=== PATIENT | male | born 1945 | race Caucasian/White ===

== ENCOUNTER → 2017-05-16 | Outpatient (CLI) | payer OTHER ==
[~2017-05-16] VITALS: Ht 172.7 cm; Wt 72.5 kg
[2017-05-16 14:20] VITALS: BP 127/67; PULSE 66; Ht 172.7 cm; Wt 72.5 kg
== END | disposition home or self-care (01) ==
LOC: C.NEUR 13:45
PROVIDERS: ATTEND Internal Medicine Pulmonary Disease
DX: G47.33 Obstructive sleep apnea (adult) (pediatric) (principal)

== ENCOUNTER → 2017-05-29 | Outpatient (CLI) | payer OTHER ==
--- NOTE | 2017-05-30 07:30 | PAP/PSG TECHNICIAN REPORT ---
[facility] Investigator [employer] Polysomnogram Report Study name: None Report date: 05/30/2017 Study date: 05/29/2017 Referring Physician: Giuseppe Carbajal MD Name: JULISA HUNT Interpreting Physician: Cristo Berger D.O. Date of : 1945 Investigator Internal Revenue: Dafne Espino, PSGT. Sex: Male Age: 71 StudyType: PSG Weight: 159 lbs Height: 71 years, Height 5' 8" Neck Circum:16.5 inches BMI: 24.17 Medications: Carvedilol 12.5 mg, Lorsartan Potassium 25 mg, Atrovastatin Calcium 10 mg, Aspirin 81 mg, Omeprzole 20 mg, Isis-Vit. Patient History 71 year old male here for a split night study, AHI > 15. ESS= 10 mg, Neck = 16.5 inches. Patient stated that he didn't understand why he would have to wear a c-pap tonight for a few hours, when I was explaining the procedure of a split night study to him.... Parameters Monitored NPSG: E1-M2, E2-M1, Fp1-M2, Fp2-M1, F3-M2, F4-M2, F4-M1, C3-M2, C4-M2, C4-M1, O1-M2, O2-M2, O2-M1, T3-M2, T4-M1, P3-M2, P4-M1, CHIN1, CHIN2, HR, EKG, Legs, PFLOW, SNOR, FLOW, CFLOW, Tidal Volume, THOR, ABDO, SpO2, PLTH, CPRESS, ETCO2 Wave, ETCO2, pH Sleep Architecture Sleep Stages Time at Lights Off 11:05:40 PM STAGES Time (min.) TST (%) Time at Lights On 5:22:40 AM Wake 69.5 -- Total Recording Time (TRT) 378.50 min. N1 13.0 4 Total Sleep Period (TSP) 331.0 min. N2 229.5 75 Total Sleep Time (TST) 307.5min. N3 0.0 0 Awake Time 71.0 min. REM 65.0 21 Wake after Sleep Onset 32.5 min. Sleep Efficiency (SE) 82 % Sleep Onset Latency (NIKOS) 37.0 min. Number of Stage 1 Shifts None Awakenings 13 Stage Changes 39 Number of REM periods 3 REM 65.0 21 REM Latency 47.0 min. NREM 242.5 79 Body Position Analysis Supine Right Left Side Prone Vertical Total Sleep Time (min.) 344.9 0.0 27.6 27.64 0.0 1.5 Total Sleep Time (%) 91% 0% 9% 9 0% N/A% Total Sleep Time REM (min.) 42.5 0.0 22.5 None 0.0 0.0 Total Sleep Time NREM (min.) 237.4 0.0 5.1 None 0.0 0.0 Intermittent Wake (min.) 65.0 0.0 3.0 None 0.0 1.5 Total Sleep Period (%) 91% None None None None None Arousals Myoclonus (PLM) * Events Count Index Events Count Index Spontaneous 63 12 Events Awake (PLMW) 2 1.7 Respiratory 10 2.0 Events Asleep w/ Arousal (PLMA) 7 1.4 PLM 7 1 Events Asleep w/o Arousal (PLMS) 96 18.7 Snoring 23 4 Total Asleep 103 20.1 Total 103 20 Total 105 17 Respiratory Analysis * CA OA MA CH H RERA Total Count 6 7 0 0 69 0 82 Index 1.2 1.4 0.0 0 13.5 0 16.0 Mean Duration 17.1 19.5 0.0 0.00 21.5 0.0 21.0 Longest Duration 28.6 24.9 0.0 0.00 0.0 0.0 51.9 Respiratory Event Summary Total Supine ~Supine Right Left Prone REM NREM Apneas Count 13 13 0 N/A 0 N/A 0 13 Index 2.5 3 0 N/A 0.0 N/A 0 3 Hypopneas (4% Desat) Count 69 67 2 N/A 2 N/A 8 61 Index 13.5 14.4 4 N/A 4.3 N/A 7.4 15.1 Apneas & All Hypopneas Count 82 80 2 N/A 2 N/A 8 74 Index 16.0 17 4 N/A 4 N/A 7.4 18.3 Respiratory Events (Silo Filler+All Hyp+RERA) Count 82 80 2 N/A 2 N/A 8 74 Index 16.0 17 4 N/A 4.3 N/A 7.4 18.3 Respiratory Related Arousal Count 10 80 2 N/A 2 N/A 1 9 Index 2.0 2 4 N/A 4 N/A 1 2 Snoring Analysis Supine Right Left Prone REM NREM Total Snore duration 10.4 min Snores count 216 N/A 73 N/A 80 209 289 Snore mean duration 2.2 Sec Snores index 46 N/A 158 N/A 73.8 51.7 56.4 TST with snoring (%) 3.4% Desaturation Event Summary: Minimum %SpO2 Event Count Mean/Min/Max Duration(sec.) Desaturation Index % Time In Bed > 90 125 32.6 / 10.5 / 60.0 23.3 88.8 86 - 90 0 N/A 0.0 8.2 81 - 85 0 N/A 0.0 2.9 76 - 80 0 N/A 0.0 0.0 71 - 75 0 N/A 0.0 0.0 66 - 70 0 N/A 0.0 0.0 61 - 65 0 N/A 0.0 0.0 56 - 60 0 N/A 0.0 0.0 51 - 55 0 N/A 0.0 0.0 < 50 0 N/A 0.0 0.0 Total REM NREM Awake <50% 0.0 min. 0.0 min. 0.0 min. 0.0 min. 51 - 60% 0.0 min. 0.0 min. 0.0 min. 0.0 min. 61 - 70% 0.0 min. 0.0 min. 0.0 min. 0.0 min. 71 - 80% 0.0 min. 0.0 min. 0.0 min. 0.0 min. 81 - 90% 40.4 min. 0.1 min. 35.3 min. 4.9 min. 91 - 100% 321.6 min. 64.7 min. 202.2 min. 54.6 min. Average 94 95 93 94 Minimum SpO2 79 90 84 79 Desaturation Event Index 19.9 19.4 25.7 0.0 # Desat. Events below 89% 10 N/A 10 0 Time(%) with Saturation below 89% 7.9 0.0 6.7 1.2 Time(min.) with Saturation below 89% 28.6 0.0 24.3 4.4 Time (mins) REM (mins) NREM (mins) % of TST SpO2 Below 90% 35 1 N34 9.9 SpO2 Below 88% 6 0 0 7 Heart Rate Analysis Min (bpm) Max (bpm) Average (bpm) Awake 31 300 57 NREM 51 127 55 REM 49 64 54 Overall 49 127 55 Supplemental O2 Values Minimum O2 level: None Value Start Time End Time Investigator Internal Revenue Comments PSG Study slept in the left, and supine positions. No cardiac arrhythmia or PLM's noted. No bruxism noted. Snoring was noted and scored as a two on a scale of 1 through 5. (0=no snoring, 5=snoring loud enough to be heard through a closed door or down the patino way) Mr. Hunt awoke to use the restroom zero times during the night. stated, I slept better than I do when I am in my own bed. The final report will be interpreted and signed by a sleep physician. The completed physician report will then be placed in the patient medical record. Patient did not reach an AHI of 15 before 2 am, therefore he did not qualify for a split night study. Therapy (cm H2O) 0 TIB (min.) 377.0 TST (min.) 307.5 Sleep Onset (min.) 37.0 REM Onset From Sleep (min.) 47.0 Sleep Efficiency % 82 Wakefulness (%) 18 Wakefulness (min.) 71.0 NREM 1 (%) 4 NREM 1 (min.) 13.0 NREM 2 (%) 75 NREM 2 (min.) 229.5 NREM 3 (%) 0 NREM 3 (min.) 0.0 REM (%) 21 REM (min.) 65.0 # Arousals 103 Arousal Index 20 # Snore 289 Snore Index 56.4 AHI 16.0 AHI Supine 17 AHI Non-Supine 4 NREM AHI 18.3 REM AHI 7.4 RDI 16.0 # Obstructive Apnea 7 # Central Apnea 6 # Mixed Apnea 0 # Hypopneas 69 RERAs 0 Total Respiratory Events 84 Time Below SpO2 89% (min.) 24.3 Mean NREM SpO2 (%) 93 Mean REM SpO2 (%) 95 Mean Sleep SpO2 (%) 93 Min NREM SpO2 (%) 84 Min REM SpO2 (%) 90 Position Supine (min.) 344.9 Position Non-supine (min.) 27.6 LM Index Sleep 20.1 LM Index NREM 20.0 LM Index REM 20.3 Mean Heart Rate (bpm) 55 Min Heart Rate (bpm) 49
--- NOTE | 2017-06-01 13:10 | Sleep Study ---
Sleep Study Report Date of Service: 05/29/2017 Sleep Study Report CLINICAL DATA: The patient is a 71-year-old male who has a history of snoring and observed apneas. He has known cardiomyopathy and cardiac arrhythmia. He has a history of hypertension and diabetes. His [place] Sleepiness Scale score was 10. This was an in-lab overnight polysomnography. SLEEP ARCHITECTURE: The sleep period time was 331 minutes. The total sleep time was 307.5 minutes. The sleep efficiency was mildly reduced at 82 percent. The sleep latency was prolonged to 37 minutes. Wake after sleep onset was 32.5 minutes. The REM latency was mildly short at 47 minutes. Sleep consisted of stage N1 4 percent, stage N2 75 percent, stage N3 0 percent, stage REM 21 percent. AROUSAL DATA: The patient had a total of 103 arousals including 63 spontaneous arousals, 10 respiratory arousals, 7 PLM arousals, and 23 snoring arousals. The arousal index was 20. PLM DATA: The patient had a total of 103 periodic limb movements of sleep for a PLM index of 20.1. There were 7 arousals associated with limb movements for a PLM arousal index of 1.4. EKG: The underlying cardiac rhythm was normal sinus. The minimum heart rate was 49 beats per minute. The average heart rate was 55 beats per minute. No cardiac arrhythmia was noted. RESPIRATORY DATA: The patient had a total of 82 respiratory events including 6 central apneas, 7 obstructive apneas, and 69 hypopneas. Hypopneas were scored according to the 4 percent desaturation rule. The longest apnea was 28.6 seconds. The mean duration of the hypopneas was 21.5 seconds. The apnea-hypopnea index was moderately elevated at 16.0 events per hour. This is compatible with moderate obstructive sleep apnea. OXIMETRY DATA: The average saturation for the night was 94 percent. The minimum saturation was 79 percent. This was likely artifactual. There was a total of 28.6 minutes with saturations less than 89 percent. [employer] FI[employer] TECHNICIAN COMMENTS: The patient slept on the left and supine positions. No cardiac arrhythmia noted. No bruxism noted. Snoring was noted and scored as a 2 on a scale of 1 through 5. The patient awaken to use the restroom 0 times during the night. He states that he slept better than he does in his own bed. The patient did not qualify for a split night study as he did not have sufficient events before 2 a.m.. IMPRESSIONS: 1. Moderate obstructive sleep apnea COMMENTS: The patient had a mild decrease in sleep efficiency. Sleep architecture was abnormal with no stage N3 sleep. Most of the night he was supine. There was a modest number of arousals. He had moderate sleep apnea as noted above. In light of his numerous comorbidities, it is advised that he be treated. RECOMMENDATIONS: 1. It is advised that the patient be given a trial of nasal CPAP. 2. It would be suggested that the patient avoid sleeping in the supine position. 3. Further suggestions will be made following the trial of nasal CPAP. Copies To 1: Cristo Berger DO; Giuseppe Carbajal M.D.
== END | disposition home or self-care (01) ==
LOC: C.NEUR 21:00
PROVIDERS: ATTEND Internal Medicine Pulmonary Disease
DX: G47.33 Obstructive sleep apnea (adult) (pediatric) (principal)

== ENCOUNTER 2023-06-27 14:31 | Observation (INO) ==
--- NOTE | 2023-06-27 15:09 | ED Triage Note ---
Date of Service June 27, 2023 Provider in Triage Author: Logan Mccullough History of Present Illness This patient was briefly evaluated while in triage. An abbreviated physical exam was performed. This patient is a 77-year-old Male who presents to the ED for evaluation of left chest pain with shortness of breath. The patient reports that he just had cardiac catheterization with 3 stents a month ago. Patient is currently on Plavix and aspirin. The patient reports that his current chest pain is different than what he had prior to his catheterization. The patient was seen by his electric furnace operator, who was concerned that he had a blood clot in the chest. Patient reports that he also had abnormal labs, and was sent to the emergency department for further imaging. Patient reports pain only with deep breathing, rating his discomfort an 8 out of 10. Physical Exam CONSTITUTIONAL: Healthy and well nourished. HEENT: No scleral icterus or conjunctival injection. RESPIRATORY: Clear to auscultation bilaterally with no wheezing, crackles, rhonchi or stridor. CARDIOVASCULAR: Regular rate and rhythm with no murmurs, rubs or gallops. MUSCULOSKELETAL: No tenderness to palpation over the left anterior chest wall. INTEGUMENTARY: No rash or other significant dermatologic conditions noted. HEMATOLOGIC: No ecchymosis or petechiae. PSYCHIATRIC: Positive affect. NEUROLOGIC: No focal neurologic deficits noted. Initial orders for labs and / or imaging were placed and patient was placed in the waiting area until a bed is available. Please see further documentation for the full ED course.
[2023-06-27 16:02] LABS: Basophils # (auto) 0.04 K/uL (0.00-0.20); Basophils % (auto) 0.7 %; Eosinophils # (auto) 0.34 K/uL (0.00-0.50); Eosinophils % (auto) 6.1 %; Immature Granulocytes # (auto) 0.02 K/uL (0.01-0.20); Immature Granulocytes % (auto) 0.4 %; Lymphocytes % (auto) 14.4 %; Mean Corpuscular Hemoglobin 31.3 pg (25.0-34.0); Mean Corpuscular Hgb Conc 33.3 g/dL (32.0-36.0); Monocytes % (auto) 10.8 %; Neutrophils # (auto) 3.74 K/uL (1.40-6.50); Neutrophils % (auto) 67.6 %; Platelet Count 114 K/uL (130-400); RDW Standard Deviation 55.3 fL (36.4-46.3); Red Blood Count 3.19 M/uL (4.70-6.10); White Blood Count 5.54 K/ul (4.8-10.8)
[2023-06-27 16:16] LABS: INR 1.1 (0.9-1.1); Partial Thromboplastin Time 29 Seconds (21-31); Prothrombin Time 11.8 Seconds (9.0-12.0)
[2023-06-27 16:21] LABS: Albumin Level 3.6 gm/dl (3.4-5.0); Anion Gap 8 (3-11); Bilirubin,Total 0.7 mg/dl (0.2-1.0); Calcium 9.6 mg/dl (8.6-10.3); Carbon Dioxide 33 mmol/L (21-32); Chloride 95 mmol/L (98-107); Potassium 4.2 mmol/L (3.5-5.1); Sodium 136 mmol/L (136-145)
--- NOTE | 2023-06-27 16:27 | Emergency Department Note ---
Impression & Plan Pleuritic chest pain, ESRD needing dialysis, Elevated troponin, Elevated d- dimer ED Provider Note CHIEF COMPLAINT: Possible blood clot HISTORY OF PRESENTING ILLNESS: This 77-year-old male patient presents to the emergency department for evaluation of a possible blood clot. The patient has had pain in the left side of his chest since 8 pm last night that is worse when he takes a deep breath. The patient had recent cardiac stents (beginning of May at [facility]) and is on aspirin and Plavix. The pain is under his left rib cage and is worse with taking a deep breath. Denies any fevers, cough, or URI symptoms recently. Has felt extremely tired recently. No pain or swelling to his legs or calves. No pain or swelling of his arms. He denies any abdominal pain, nausea, or vomiting. He gets dialysis MWF and is due for dialysis tomorrow. 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 The patient saw his PCP today for the pleuritic chest pain. The patient was sent for outpatient labs including a D-dimer and troponin. The plan was if the D-dimer was elevated, for the patient to take Eliquis in addition to his Plavix and have a CTA of the chest prior to his dialysis tomorrow. However, if the troponin was elevated, he would be referred to the ER. Outpatient labs showed an elevated D-dimer at 2530 and elevated troponin at 48.2 so he was referred to the ER. REVIEW OF SYSTEMS: See HPI for pertinent positives and pertinent negatives. ALLERGIES: NKDA MEDICATIONS: See below PAST MEDICAL HISTORY: See below PHYSICAL EXAM: VITALS: Vitals are noted on the nurse's note and reviewed by myself. GENERAL: Chronically ill in appearance. Non toxic, no acute distress, non- diaphoretic. SKIN: Multiple areas of ecchymosis and dialysis fistulas present on exam. Capillary refill <2 sec. EYES: PERRLA. EOMI. Conjunctivae without injection, sclerae without icterus. NOSE: Patent without discharge. MOUTH: Mucous membranes moist. Uvula midline. Airway patent. NECK: Supple without nuchal rigidity. HEART: Regular rate and rhythm without murmurs gallops or rubs. LUNGS: Clear to auscultation bilaterally without wheezes, rales or rhonchi. No retractions or accessory muscle use. ABDOMEN: Positive bowel sounds x 4. Normal tympanic percussion. Soft, nontender. No masses or organomegaly. Urias sign negative. No guarding or rebound tenderness. No focal RLQ or LLQ tenderness. NEURO: Patient was alert and oriented. No focal neurological deficits. DIFFERENTIAL DIAGNOSIS: Differential diagnosis includes angina, MO, pericarditis, myocarditis, aortic dissection, pleurisy, pneumothorax, PE, pneumonia, pneumomediastinum, esophagitis, esophageal spasm, GERD, perforated esophagus, perforated duodenal/gastric ulcer, pancreatitis, cholecystitis, costochondritis, musculoskeletal, bronchitis, URI, or others. ED COURSE AND MEDICAL DECISION MAKING: HISTORY FROM INDEPENDENT HISTORIAN: Additional history obtained from the patient's . MONITOR: Continuous groundwater monitoring technician: Order was placed for continuous groundwater monitoring technician. Patient was placed on the groundwater monitoring technician and continuous pulse ox. Patient was noted to be in normal sinus rhythm at an initial rate of 70 bpm per my interpretation. EKG: EKG was interpreted by myself as sinus rhythm with fusion complexes at 71 bpm and left axis deviation with lateral T wave inversions. Initial repeat EKG appeared to be abnormal due to lead placement. Therefore, another repeat EKG was obtained and showed sinus rhythm with fusion complexes at 71 beats per minute with left axis deviation and lateral T wave inversions with no significant changes from his previous EKG. MEDICATIONS GIVEN: 500 mL normal saline solution bolus INTERPRETATION OF LABS: I interpreted the labs with full lab results as below in the lab section of this note. White blood cell count normal. Hemoglobin low, but stable at 10. Platelet count low at 114. Coags were normal. Creatinine elevated at 5.83 and BUN elevated at 34. Glucose 138. CMP otherwise without significant abnormalities. Magnesium was normal. High-sensitivity troponin was 44.6 with repeat at 39. Lipase normal at 6. INTERPRETATION OF IMAGING: Imaging studies were interpreted by myself and read by radiology as per the imaging section of this note. CTA of the chest showed no evidence for PE. 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 No acute dissection within the chest. No significant change from previous CT scan of May 2022. There is a trace left pleural effusion. Mild cardiomegaly with extensive coronary calcification. EXTERNAL RECORDS REVIEWED: Outpatient PCP note from today as well as outpatient labs were reviewed and summarized above. CONSULTATIONS: Dr. Huerta of cardiology. On-call hospitalist. MDM SUMMARY: The patient was seen during a time of extreme volume and extreme acuity. Nursing triage protocols were initiated with IV lock, labs, and/or imaging studies conducted by protocol in the triage area. The patient was examined by myself once they were taken back to an exam room. The patient was seen by his PCP today with pleuritic chest pain since 8 PM last evening. The patient has a history of recent cardiac stents as well as ESRD on dialysis. The patient had outpatient laboratory studies that showed an elevated D-dimer and elevated troponin. The patient was referred to the ER to rule out blood clot. The patient's repeat high-sensitivity troponin was slightly lower at 44.6 with repeat decreased down to 39. EKG without acute abnormalities. Dr. Huerta confirmed that the lateral T wave inversions are unchanged from his EKGs at [facility]. Due to the patient's elevated BUN and creatinine and dialysis status, I had a meaningful discussion about this patient with Dr. Fischer who agrees with my assessment and the treatment plan. We will proceed with CTA of the chest to evaluate for PE. CT of the chest showed no evidence for PE and no other acute abnormalities. The chronic dissection and aneurysmal dilation of the thoracic aorta is unchanged from previous imaging. Due to the patient's pleuritic chest pain, cardiac history, ESRD, and elevated D-dimer and troponin, we feel the patient requires admission for further evaluation. I spoke with the on-call hospitalist who asked that I speak with cardiology to confirm that the patient was able to be admitted locally. I spoke with Dr. Ngo of cardiology who was able to review the patient's most recent records from [facility] including his cardiac cath and stent placement. Dr. Ngo reviewed the patient's workup from today and feels the patient is stable to be admitted locally and does recommend that he be admitted with serial troponins for rule out. I spoke with the on-call hospitalist again who agreed to admit the patient for further evaluation and treatment. Please refer to their dictation for further details. The patient's care was transferred in stable condition. DIAGNOSIS: Pleuritic chest pain Elevated D-dimer Elevated troponin ESRD on dialysis Past Med/Surg History Medical History (Updated 06/28/23 @ 04:12 by Elida Armenta PA-C) Pleuritic chest pain Itch Paroxysmal atrial fibrillation Ischemic cardiomyopathy NSTEMI (non-ST elevated myocardial infarction) Lower abdominal pain COVID-19 virus infection Viral URI Vitamin B 12 deficiency Coronary artery disease Epigastric pain determined by examination Diverticulitis History of Mohs micrographic surgery for skin cancer x3--2 on scalp, 1 on back AV fistula x2--one one each arm; RIGHT ARM is FUNCTIONING PVCs (premature ventricular contractions) [place] [facility] [place] Chronic GERD Epigastric abdominal pain Cervical neck pain with evidence of disc disease Nontraumatic complete tear of right rotator cuff Osteoarthritis of right shoulder Dyslipidemia Chronic low back pain Cervicalgia IgA nephropathy Squamous cell carcinoma of scalp hx of; MOHS procedure Aortic dissection roughly 5yrs ago--per pt happened [place] [facility]--per pt no repair needed---follows with Dr. 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 while taking large doses of a steroid--pt states it resolved after awhile ESRD needing dialysis dialysis on Sat-Sat-Sat @ [facility] in [place] Elevated PSA Hyperlipemia, mixed Benign essential hypertension Hypomagnesemia Obstructive sleep apnea of adult Osteoarthritis of knees, bilateral Pulmonary embolism per pt happened during surgery [place] [facility] [place] "within the last 10yrs, I dont remember how long ago" Surgical History History of repair of left rotator cuff History of repair of right rotator cuff S/P arteriovenous (AV) fistula creation x2--per pt one on each arm, right arm is FUNCTIONING fistula History of colonoscopy History of tooth extraction History of bilateral cataract extraction History of cardiac cath roughly 5yrs ago [place] [facility] [place]caused an aortic dissection--no stents 05/27/2023 Coronary angiography w/left heart cath (Right) CORONARY ANGIOGRAPHY W/LEFT HEART CATH performed by Janet Larios MD at [facility] Kidney replaced by transplant per pt 2012 [place] [facility] [place] History of hernia repair umbilical hernia repair History of tonsillectomy Family History Other No family history of adverse response to anesthesia No pertinent family history Denies family history of Ovarian cancer Prostate cancer Myocardial infarction Breast cancer Colorectal cancer Social History Smoking Status: Unknown if ever smoked Second Hand Exposure: No; Do You Dip or Chew Tobacco: No; Hx Alcohol Use: No Hx Substance Use: No Preferred Language: Occitan Communication Ability: Effective Visual Impairment: No Limitations Hearing Ability: Normal 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 Required: No Beliefs That Will Affect Care: None marital status: Current Living Situation: Family current occupational status: retired Feels Safe at Home: Yes Safety Concerns: Feels Safe At This Time Childhood Exposure to Second-Hand Smoke: No caffeine: Yes (coffee ) Dental Care, Regularly: Yes Physical Activity Frequency: Does not Exercise Seatbelt Use: sometimes Sunscreen Use: Yes Assistive Devices: CPAP and Glasses Allergies Allergies Allergy/AdvReac Type Severity Reaction Status Date / Time No Known Allergies Allergy Verified 06/27/23 09:06 Home Meds Home Medications Medication Instructions Recorded Confirmed cinacalcet 30 mg tablet 30 mg PO QPM 06/04/22 06/27/23 aspirin 81 mg tablet,delayed 81 mg PO QAM 06/22/22 06/27/23 release (Adult Low Dose Aspirin) heparin (porcine) 1,000 unit/mL 2,000 unit IV .COMPLEX 05/14/23 06/27/23 injection solution vitamin B complex-vitamin C-folic 1 tab PO QPM 05/14/23 06/27/23 acid 0.8 mg tablet (Isis-Jomar) sevelamer HCl 800 mg tablet 800 mg PO UD 06/27/23 06/27/23 Previous Rx's Medication Instructions Recorded nitroglycerin 0.4 mg sublingual 0.4 mg sublingual Q5M PRN chest 07/11/21 tablet pain #25 tabs calcium acetate 667 mg tablet 667 mg PO BID #60 tabs 05/04/22 atorvastatin 80 mg tablet 80 mg PO QPM #90 tabs 06/12/23 pantoprazole 40 mg tablet,delayed 40 mg PO BID #180 tabs 06/12/23 release triamcinolone acetonide 0.1 % 1 applic topical BID PRN 06/12/23 topical cream widespread itch #454 grams carvedilol 12.5 mg tablet 12.5 mg PO BID #180 tabs 06/27/23 clopidogrel 75 mg tablet 75 mg PO DAILY #90 tabs 06/27/23 losartan 25 mg tablet 12.5 mg (1/2 x 25 mg) PO DAILY #45 06/27/23 tabs Results & Data (ED) Vital Signs Vital Signs - 24 hr 06/27/23 15:04 06/27/23 18:45 06/27/23 19:05 Temperature 36.9 C Temperature Source Temporal Artery Scan Pulse Rate 101 H 78 Pulse Rate [Apical] 74 Respiratory Rate 19 18 Respiratory Effort / Characteristics Non-Labored Spontaneous Non-Labored Spontaneous Respiratory Depth Normal Normal Blood Pressure 144/64 H Blood Pressure [Right Calf] 148/87 H Blood Pressure Mean 90 Blood Pressure Mean [Right Calf] 107 Blood Pressure Position [Right Calf] Lying Pulse Oximetry 97 98 Oxygen Delivery Method Room Air Room Air Sepsis Recent Fever Within 48 Hours No Sepsis New/Unexplained Change in Mental Status N/A Sepsis Action Taken by Nursing No Action Required 06/27/23 19:43 Temperature Temperature Source Pulse Rate Pulse Rate [Apical] 108 H Respiratory Rate 19 Respiratory Effort / Characteristics Respiratory Depth Blood Pressure Blood Pressure [Right Calf] 134/95 Blood Pressure Mean Blood Pressure Mean [Right Calf] 108 Blood Pressure Position [Right Calf] Pulse Oximetry 95 Oxygen Delivery Method Room Air Sepsis Recent Fever Within 48 Hours Sepsis New/Unexplained Change in Mental Status Sepsis Action Taken by Nursing Laboratory Data 06/27/23 15:34 06/27/23 15:34 Lab Results 06/27/23 06/27/23 Range/Units 15:34 17:20 WBC 5.54 (4.8-10.8) K/ul RBC 3.19 L (4.70-6.10) M/uL Hgb 10.0 L (14.0-18.0) g/dl Hct 30.0 L (42.0-52.0) % MCV 94.0 (80.0-100.0) fL MCH 31.3 (25.0-34.0) pg MCHC 33.3 (32.0-36.0) g/dL RDW Std Deviation 55.3 H (36.4-46.3) fL RDW Coeff of Carmen 16.0 H (11.5-14.5) % Plt Count 114 L (130-400) K/uL MPV 10.0 (9.4-12.4) fL Immature Gran % (Auto) 0.4 % Neut % (Auto) 67.6 % Lymph % (Auto) 14.4 % Bracken % (Auto) 10.8 % Eos % (Auto) 6.1 % Baso % (Auto) 0.7 % Neut # (Auto) 3.74 (1.40-6.50) K/uL Lymph # (Auto) 0.80 L (1.20-3.40) K/uL Bracken # (Auto) 0.60 H (0.11-0.59) K/uL Eos # (Auto) 0.34 (0.00-0.50) K/uL Baso # (Auto) 0.04 (0.00-0.20) K/uL Immature Gran # (Auto) 0.02 (0.01-0.20) K/uL PT 11.8 (9.0-12.0) Seconds INR 1.1 (0.9-1.1) APTT 29 (21-31) Seconds PTT Ratio 1.0 Sodium 136 (136-145) mmol/L Potassium 4.2 (3.5-5.1) mmol/L Chloride 95 L (98-107) mmol/L Carbon Dioxide 33 H (21-32) mmol/L Anion Gap 8 (3-11) BUN 34 H (6-23) mg/dl Creatinine 5.83 H* (0.6-1.4) mg/dl Est Cr Clr Drug Dosing Not Reportable Est GFR ( Amer) 9.8 ml/min Est GFR (Non-Af Amer) 8.5 ml/min BUN/Creatinine Ratio 5.8 L (10-20) Glucose 138 H (70-99(Fasting)) mg/dl Calcium 9.6 (8.6-10.3) mg/dl Magnesium 2.1 (1.7-2.4) mg/dl Total Bilirubin 0.7 (0.2-1.0) mg/dl AST 12 L (13-39) U/L ALT 10 (7-52) U/L Alkaline Phosphatase 107 H (34-104) U/L Troponin I High Sens 44.6 H 39.0 H (0-20) pg/ml Total Protein 6.4 (6.0-8.3) gm/dl Albumin 3.6 (3.4-5.0) gm/dl Globulin 2.8 (2.5-4.0) gm/dl Albumin/Globulin Ratio 1.3 (0.9-2) Lipase 6 L (11-82) U/L Administered Medications Atorvastatin Calcium (Atorvastatin 40 Mg Tab) 80 mg PO QPM CARLOS Stop: 07/27/23 22:18 Last Admin: 06/27/23 23:28 Dose: 80 mg Documented By: ASW Carvedilol (Carvedilol 12.5 Mg Tab) 12.5 mg PO BID CARLOS Stop: 07/27/23 22:18 Last Admin: 06/27/23 23:28 Dose: 12.5 mg Documented By: ASW Pantoprazole Sodium (Pantoprazole 40 Mg Tab) 40 mg PO BID CARLOS Stop: 07/27/23 22:18 Last Admin: 06/27/23 23:24 Dose: Not Given Documented By: BENEDICTO Discontinued Medications Acetaminophen (Acetaminophen 500 Mg Tab) 1,000 mg PO NOW STA Stop: 06/27/23 20:42 Last Admin: 06/27/23 21:09 Dose: 1,000 mg Documented By: BENEDICTO Famotidine (Famotidine 20 Mg Tab) 20 mg PO NOW ONE Stop: 06/27/23 20:42 Last Admin: 06/27/23 21:09 Dose: 20 mg Documented By: BENEDICTO Sodium Chloride (Nss) 500 mls @ 999 mls/hr IV .Q31M ONE Stop: 06/27/23 17:34 Last Infusion: 06/27/23 19:10 Dose: Infused Documented By: Admin: 06/27/23 17:15 Dose: 999 mls/hr Documented By: SURESH Ioversol (Optiray 320 125ml) 119 ml IV ONCE ONE Stop: 06/27/23 17:59 Last Admin: 06/27/23 17:58 Dose: 119 ml Documented By: NATHALIE Pantoprazole Sodium (Pantoprazole 40 Mg Tab) 40 mg PO NOW STA Stop: 06/27/23 20:42 Last Admin: 06/27/23 21:09 Dose: 40 mg Documented By: BENEDICTO Simethicone (Simethicone 80 Mg Chew) 80 mg PO NOW ONE Stop: 06/27/23 20:44 Last Admin: 06/27/23 21:08 Dose: 80 mg Documented By: ASW Imaging Data Radiologist's Impression: Chest CTA 06/27/23 17:04 CT ANGIOGRAPHY OF THE CHEST, PULMONARY EMBOLUS PROTOCOL CLINICAL HISTORY: Left-sided chest pain. History dissection repair. COMPARISON STUDY: Chest radiograph June 04, 2022. TECHNIQUE: Following IV administration of 119 mL of Optiray, helical axial images of the chest were obtained utilizing the pulmonary embolus protocol. Maximal intensity projections and sagittal and coronal reformats were viewed on an independent 3D workstation. IV contrast was administered without complication. Automated exposure control was utilized for the study. A dose lowering technique was utilized adhering to the principles of ALARA. CT DOSE: 653.28 mGy.cm FINDINGS: No pulmonary emboli are identified. There is moderate cardiomegaly and extensive coronary artery calcification. There is extensive atherosclerotic plaque within the thoracic aorta. Focal outpouchings of the descending thoracic aorta suggests chronic dissection with displaced intimal calcifications. Associated aneurysmal dilatation of the descending thoracic aorta measuring up to 3.7 cm is noted. There is no evidence for rupture. Outpouching of the distal descending thoracic aorta is unchanged since abdominal CT of June 04, 2022. No acute thoracic aortic dissection is identified. There is trace left pleural effusion. No consolidation is identified to suggest pneumonia. There is no pneumothorax. Contrast within collaterals within the chest is incidentally noted. A few hypodense hepatic lesions favor cysts. Innumerable hypodense splenic lesions are similar to abdominal CT of June 04, 2022. IMPRESSION: 1. No pulmonary emboli identified. 2. 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 No acute dissection within the chest. 3. Trace left pleural effusion. 4. Mild cardiomegaly. Extensive coronary calcification. ACT 112: Negative or not required by law. Electronically signed by: Rich Charles M.D. 06/27/2023 6:23 PM Discharge Plan Visit Data Chief Complaint: Referred by Doctor Stated Complaint: POSSIBLE BLOOD CLOT ED Provider: Geeta Fischer ED Midlevel Provider: Elida Armenta Discharge Problem: Pleuritic chest pain, ESRD needing dialysis, Elevated troponin, Elevated d- dimer Patient Disposition: Admitted As Inpatient Condition: Good Discharge Instructions Interventions: ED Discharge Assessment Last Done: 06/27/23 22:19
[2023-06-27 16:33] LABS: Alanine Aminotransferase 10 U/L (7-52); Albumin Globulin Ratio 1.3 (0.9-2); Alkaline Phosphatase 107 U/L (34-104); Aspartate Aminotransferase 12 U/L (13-39); BUN Creatinine Ratio 5.8 (10-20); Blood Urea Nitrogen 34 mg/dl (6-23); Est GFR (African American) 9.8 ml/min; Est GFR (Non-African American) 8.5 ml/min; Globulin 2.8 gm/dl (2.5-4.0); Glucose 138 mg/dl (70-99(Fasting)); Lipase 6 U/L (11-82); Total Protein 6.4 gm/dl (6.0-8.3); Troponin I High Sensitivity 44.6 pg/ml (0-20)
[2023-06-27] MEDS: SODIUM CHLORIDE 0.9% 500 ML IV ONE (17:15)
[2023-06-27 17:35] LABS: Magnesium 2.1 mg/dl (1.7-2.4)
[2023-06-27] MEDS: OPTIRAY 320 125ml IV ONE (17:58)
--- NOTE | 2023-06-27 18:26 | CT Scan Report ---
CT ANGIOGRAPHY OF THE CHEST, PULMONARY EMBOLUS PROTOCOL CLINICAL HISTORY: Left-sided chest pain. History dissection repair. COMPARISON STUDY: Chest radiograph June 04, 2022. TECHNIQUE: Following IV administration of 119 mL of Optiray, helical axial images of the chest were o btained utilizing the pulmonary embolus protocol. Maximal intensity projections and sagittal and cor onal reformats were viewed on an independent 3D workstation. IV contrast was administered without co mplication. Automated exposure control was utilized for the study. A dose lowering technique was ut ilized adhering to the principles of ALARA. CT DOSE: 653.28 mGy.cm FINDINGS: No pulmonary emboli are identified. There is moderate cardiomegaly and extensive coronary artery calcification. There is extensive atherosclerotic plaque within the thoracic aorta. Focal outp ouchings of the descending thoracic aorta suggests chronic dissection with displaced intimal calcific ations. Associated aneurysmal dilatation of the descending thoracic aorta measuring up to 3.7 cm is n oted. There is no evidence for rupture. Outpouching of the distal descending thoracic aorta is unchan ged since abdominal CT of June 04, 2022. No acute thoracic aortic dissection is identified. There is trace left pleural effusion. No consolidation is identified to suggest pneumonia. There is no pneumo thorax. Contrast within collaterals within the chest is incidentally noted. A few hypodense hepatic l esions favor cysts. Innumerable hypodense splenic lesions are similar to abdominal CT of June 04. IMPRESSION: 1. No pulmonary emboli identified. 2. 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 No acute dissection within the ches t. 3. Trace left pleural effusion. 4. Mild cardiomegaly. Extensive coronary calcification. ACT 112: Negative or not required by law. Electronically signed by: Rich Charles M.D. 06/27/2023 6:23 PM
--- NOTE | 2023-06-27 20:19 | History & Physical Report ---
Date of Service June 27, 2023 Assessment & Plan (1) Abdominal pain: Plan: -Admit to med/tele -Currently stable and non-toxic appearing -Presented to the ED from his PCP's office due to concerns of possible left sided pleuritic chest pain -Underwent CTA of the chest which was negative for PE and showed a stable thoracic aneurysm -Initial high sen trop elevated at 44 --> 39 on 2 hour repeat -[facility]iology was consulted and confirmed not acute ECG changes compared to recent admission at [facility] -On exam, the patient's discomfort is clearly in his epigastric region and LUQ -Suspect his discomfort is due to his known hiatial hernia and GERD >Patient is also supposed to be on BID PO pantoprazole but was taking daily due to prescription confusion -Will give a dose of PO pantoprazole, famotidine, and simethicone now -Continue BID pantoprazole and famotidine -Will start prn simethicone, patient has OTC simethicone at home he can use -Cardiology consult placed -BL Vipin's for DVT PPX -HH/renal dialysis diet >1500 mL fluid and 2gm sodium restrictions -AM CBC, CMP, mag, phos, PT/INR (2) Elevated troponin: Plan: -Initial high sen trop elevated at 44 ---39 on 2 hour repeat -No acute ECG changes per cardiology -Patient's pain is in the epigastric and LUQ regions -Likely a combination of mild demand from his severely reduced EF and falsely elevated due to his ESRD status -Continue to monitor on tele -Will continue to trend q6h overnight to monitor for substantial changes -Continue aspirin and plavix (3) ESRD needing dialysis: Plan: -Typical dialysis schedule is MW -Did have a full dialysis session yesterday -Electrolytes are stable today, no emergent need for dialysis tonight -Patient will need to have dialysis tomorrow due to CT contrast received in the ED -Nephrology consult placed, spoke with Nephrology, appreciate their assistance >Will receive HD tomorrow -Continue home renal medications -Monitor am renal function and electrolytes (4) Thrombocytopenia: Plan: -Platelets of 114 today -No signs of bleeding -Likely due to recent Cardiac cath at [facility] and dual antiplatelet therapy -Have to continue Aspirin and plavix at this time with his recent KASHMIR placement -Monitor for signs of bleeding -Monitor daily CBC (5) Paroxysmal atrial fibrillation: Plan: -Reportedly developed new onset, paroxysmal afib during his admission at [facility] last month -Per the discharge summary, anticoagulation was not started due to the patient's bleeding risk -Has been in sinus rhythm today -Continue Carvedilol (6) Ischemic cardiomyopathy: Plan: -Currently euvolemic -LVEF of < 20% on echo obtained at [facility] during last admission -Did receive 500 mL NSS in the ED prior to admission -Would be extremely cautious with any IV fluids overnight with his severely reduced EF and ESRD status >Patient does NOT make urine -Not on diuretic therapy due to labile blood pressure (7) Coronary artery disease: Plan: -Continue aspirin and plavix (8) GERD (gastroesophageal reflux disease): Plan: -Resume BID pantoprazole -Start BID famotidine and prn simethicone -Was not continued on Carafate after last admission at [facility] due to concerns of aluminum build-up with his ESRD status (9) Benign essential hypertension: Plan: -Currently stable -Will continue carvedilol -Holding am losartan tomorrow as he will be having a dialysis session Plan The patient was discussed with Dr. Mcguire at the time of the admission History of Present Illness Chief Complaint: Left sided chest pain Primary Care Provider: Giuseppe Carbajal MD Noel Ruiz is a 77 year old male with a PMH significant for CAD S/P recent NSTEMI and PCI with KASHMIR placement to the RCA, distal LMCA/ostial LAD, at [facility] on 05/27/23, HFrEF (LVEF of <20%), thoracic aortic aneurysm, atrial fibrillation (not on anticoagulation due to bleeding risk), ESRD on HD MWF, GERD, complex sleep apnea syndrome, dyslipidemia who presented to the [facility] ED on 06/27/23 due to acute onset of left sided chest pain with inspiration. He was noted be mildly hypotensive at 106/58, tachycardic at 108, but otherwise stable. Labs were significant for a thrombocytopenia of 114, d- dimer of 2530, Cr. of 5.83, bicarb of 33, initial high sen trop 44 ---> 39 on 2 hour repeat. CTA of the chest with PE protocol was read as "1. No pulmonary emboli identified. 2. 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 No acute dissection within the chest. 3. Trace left pleural effusion. 4. Mild cardiomegaly. Extensive coronary calcification.". The ED staff spoke with [facility]iology who reviewed his ECG's from today and they stated there were no acute concerning changes compared to his post heart cath ECG's. They also reviewed the patient's CTA of the chest today and believed the thoracic aortic aneurysm to be stable. They recommended admission for ongoing monitoring on tele. Prior to admission the patient was given 500 mL NSS. At the time of the exam the patient was lying in bed in no acute distress with his bedside, history was obtained from both. They confirm his recent hospitalization at [facility] last month, see discharge summary scanned into [employer] for details. Last night he started to develop dull/achy epigastric/LUQ abdominal pain when he took deep breaths. He mentioned this to his PCP earlier today for discharge follow-up and they sent him to the ED due to concern for possible PE, his hx of aortic aneurysm, and recent cardiac catheterization. He does have a known hiatal hernia and long history of reflux. He was supposed to start taking Pantoprazole 40 mg PO BID after discharge, he states that the prescription bottle said to take once daily so he's only been taking it once a day. Denies recent fever, chills, SOB, cough, hemoptysis, vomiting, diarrhea, melena, LE swelling, and recent trauma. He does not make urine and had a full dialysis session yesterday evening. They confirm that he is a DNR/DNI, his is his POA if he cannot make decisions himself. Please refer to Dr. Mcguire's attestation for any changes to the treatment plan Allergies Allergy/AdvReac Type Severity Reaction Status Date / Time No Known Allergies Allergy Verified 06/27/23 09:06 Home Medications Medication Instructions Recorded Confirmed Type nitroglycerin 0.4 mg sublingual 0.4 mg sublingual Q5M PRN chest 07/11/21 06/27/23 Rx tablet pain #25 tabs calcium acetate 667 mg tablet 667 mg PO BID #60 tabs 05/04/22 06/27/23 Rx cinacalcet 30 mg tablet 30 mg PO QPM 06/04/22 06/27/23 History aspirin 81 mg tablet,delayed 81 mg PO QAM 06/22/22 06/27/23 History release (Adult Low Dose Aspirin) heparin (porcine) 1,000 unit/mL 2,000 unit IV .COMPLEX 05/14/23 06/27/23 History injection solution vitamin B complex-vitamin C-folic 1 tab PO QPM 05/14/23 06/27/23 History acid 0.8 mg tablet (Isis-Jomar) atorvastatin 80 mg tablet 80 mg PO QPM #90 tabs 06/12/23 06/27/23 Rx pantoprazole 40 mg tablet,delayed 40 mg PO BID #180 tabs 06/12/23 06/27/23 Rx release triamcinolone acetonide 0.1 % 1 applic topical BID PRN 06/12/23 06/27/23 Rx topical cream widespread itch #454 grams carvedilol 12.5 mg tablet 12.5 mg PO BID #180 tabs 06/27/23 06/27/23 Rx clopidogrel 75 mg tablet 75 mg PO DAILY #90 tabs 06/27/23 06/27/23 Rx losartan 25 mg tablet 12.5 mg (1/2 x 25 mg) PO DAILY #45 06/27/23 06/27/23 Rx tabs sevelamer HCl 800 mg tablet 800 mg PO UD 06/27/23 06/27/23 History amoxicillin 500 mg-potassium 1 tab PO DAILY diverticulitis #7 06/28/23 Rx clavulanate 125 mg tablet tabs famotidine 20 mg tablet 20 mg PO DAILY PRN stomach pain / 06/28/23 Rx heartburn #1 tab Past Med/Surg History Medical History Pleuritic chest pain Itch Paroxysmal atrial fibrillation Ischemic cardiomyopathy NSTEMI (non-ST elevated myocardial infarction) Lower abdominal pain COVID-19 virus infection Viral URI Vitamin B 12 deficiency Coronary artery disease Epigastric pain determined by examination Diverticulitis History of Mohs micrographic surgery for skin cancer x3--2 on scalp, 1 on back AV fistula x2--one one each arm; RIGHT ARM is FUNCTIONING PVCs (premature ventricular contractions) follows with [facility] Cardiology Chronic GERD Epigastric abdominal pain Cervical neck pain with evidence of disc disease Nontraumatic complete tear of right rotator cuff Osteoarthritis of right shoulder Dyslipidemia Chronic low back pain Cervicalgia IgA nephropathy Squamous cell carcinoma of scalp hx of; MOHS procedure Aortic dissection roughly 5yrs ago--per pt happened at [facility] during heart cath--per pt no repair needed---follows with Dr. 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 while taking large doses of a steroid--pt states it resolved after awhile ESRD needing dialysis dialysis on Sat-Sat-Sat @ [facility] in [place] Elevated PSA Hyperlipemia, mixed Benign essential hypertension Hypomagnesemia Obstructive sleep apnea of adult Osteoarthritis of knees, bilateral Pulmonary embolism per pt happened during surgery @ [facility] "within the last 10yrs, I dont remember how long ago" Surgical History History of repair of left rotator cuff History of repair of right rotator cuff S/P arteriovenous (AV) fistula creation x2--per pt one on each arm, right arm is FUNCTIONING fistula History of colonoscopy History of tooth extraction History of bilateral cataract extraction History of cardiac cath roughly 5yrs ago @ [facility]--caused an aortic dissection--no stents 05/27/2023 Coronary angiography w/left heart cath (Right) CORONARY ANGIOGRAPHY W/LEFT HEART CATH performed by Janet Larios MD at [facility] Kidney replaced by transplant per pt 2012 @ [facility] History of hernia repair umbilical hernia repair History of tonsillectomy Family History Other No family history of adverse response to anesthesia No pertinent family history Denies family history of Ovarian cancer Prostate cancer Myocardial infarction Breast cancer Colorectal cancer Social History Smoking Status: Unknown if ever smoked Second Hand Exposure: No; Do You Dip or Chew Tobacco: No; Hx Alcohol Use: No Hx Substance Use: No Preferred Language: Danish Communication Ability: Effective Visual Impairment: No Limitations Hearing Ability: Normal Secretary Office Clerk Required: No Beliefs That Will Affect Care: None marital status: Current Living Situation: Family current occupational status: retired Feels Safe at Home: Yes Childhood Exposure to Second-Hand Smoke: No caffeine: Yes (coffee ) Dental Care, Regularly: Yes Physical Activity Frequency: Does not Exercise Seatbelt Use: sometimes Sunscreen Use: Yes Assistive Devices: CPAP and Glasses Physical Exam Physical Exam: Physical Exam: General: In no acute distress, stated age, well-nourished, good hygiene HEENT: Normocephalic, atraumatic, no scleral icterus, pupils around round, symmetrical, and reactive to light, moist mucus membranes, trachea midline, no thyromegaly Chest/Pulm: No respiratory distress, symmetrical chest expansion, clear breath sounds throughout Cardiac: RRR, no murmurs noted Abdomen: Negative for ascites and bruising, normoactive bowel sounds, soft, mildly tender to palpation in the epigastric/LUQ regions without rebound tenderness Musculoskeletal: Symmetrical and without signs of acute trauma, upper and lower extremities with full ROM, no atrophy, spasticity, or flaccidity Extremities: Radial, dorsalis pedis, and posterior tibial pulses are intact and symmetrical, no edema noted in the BL LE's Skin: Warm, dry, no rashes , lesions, or scars noted Neuro: Alert and oriented to person, place, month, year, and president, no focal defects, no tremors noted Psych: No acute distress, calm and cooperative during the exam Results & Data Results & Data Vital Signs (Past 12 Hours) Vital Signs Temp Pulse Pulse Resp BP BP Pulse Ox 06/27/23 19:43 108 H 19 134/95 95 06/27/23 19:05 78 06/27/23 18:45 74 18 148/87 H 98 06/27/23 15:04 36.9 C 101 H 19 144/64 H 97 O2 Del Method 06/27/23 19:43 Room Air 06/27/23 19:05 06/27/23 18:45 Room Air 06/27/23 15:04 Room Air Laboratory Results Abnormal lab results 06/27/23 06/27/23 Range/Units 15:34 17:20 RBC 3.19 L (4.70-6.10) M/uL Hgb 10.0 L (14.0-18.0) g/dl Hct 30.0 L (42.0-52.0) % RDW Std Deviation 55.3 H (36.4-46.3) fL RDW Coeff of Carmen 16.0 H (11.5-14.5) % Plt Count 114 L (130-400) K/uL Lymph # (Auto) 0.80 L (1.20-3.40) K/uL Wallace # (Auto) 0.60 H (0.11-0.59) K/uL Chloride 95 L (98-107) mmol/L Carbon Dioxide 33 H (21-32) mmol/L BUN 34 H (6-23) mg/dl Creatinine 5.83 H* (0.6-1.4) mg/dl BUN/Creatinine Ratio 5.8 L (10-20) Glucose 138 H (70-99(Fasting)) mg/dl AST 12 L (13-39) U/L Alkaline Phosphatase 107 H (34-104) U/L Troponin I High Sens 44.6 H 39.0 H (0-20) pg/ml Lipase 6 L (11-82) U/L Diagnostic Findings Chest CTA 06/27/23 17:04 CT ANGIOGRAPHY OF THE CHEST, PULMONARY EMBOLUS PROTOCOL CLINICAL HISTORY: Left-sided chest pain. History dissection repair. COMPARISON STUDY: Chest radiograph June 04, 2022. TECHNIQUE: Following IV administration of 119 mL of Optiray, helical axial images of the chest were obtained utilizing the pulmonary embolus protocol. Maximal intensity projections and sagittal and coronal reformats were viewed on an independent 3D workstation. IV contrast was administered without complication. Automated exposure control was utilized for the study. A dose lowering technique was utilized adhering to the principles of ALARA. CT DOSE: 653.28 mGy.cm FINDINGS: No pulmonary emboli are identified. There is moderate cardiomegaly and extensive coronary artery calcification. There is extensive atherosclerotic plaque within the thoracic aorta. Focal outpouchings of the descending thoracic aorta suggests chronic dissection with displaced intimal calcifications. Associated aneurysmal dilatation of the descending thoracic aorta measuring up to 3.7 cm is noted. There is no evidence for rupture. Outpouching of the distal descending thoracic aorta is unchanged since abdominal CT of June 04, 2022. No acute thoracic aortic dissection is identified. There is trace left pleural effusion. No consolidation is identified to suggest pneumonia. There is no pneumothorax. Contrast within collaterals within the chest is incidentally noted. A few hypodense hepatic lesions favor cysts. Innumerable hypodense splenic lesions are similar to abdominal CT of June 04, 2022. IMPRESSION: 1. No pulmonary emboli identified. 2. 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 No acute dissection within the chest. 3. Trace left pleural effusion. 4. Mild cardiomegaly. Extensive coronary calcification. ACT 112: Negative or not required by law. Electronically signed by: Rich Charles M.D. 06/27/2023 6:23 PM ECG Additional Comments: Sinus rhythm with Fusion complexes and Premature atrial complexes Left axis deviation Anteroseptal infarct (cited on or before 27-JUN-2023) T wave abnormality, consider lateral ischemia Abnormal ECG When compared with ECG of 27-JUN-2023 16:31, (unconfirmed) No significant change was found Code Status & VTE Plan Code Status DNR/DNI VTE Prophylaxis Plan VTE Prophylaxis will be ordered: Yes Supervising Physician Co-Signing Physician Notes Attending addendum: I have physically seen this patient, have supervised the TALAT's activities, and agree with the H&P unless as otherwise noted. Assessment and Plan: Elevated troponin/abnormal EKG- Telemetry admission [facility] cardiology consult Dr. Huerta confirms EKG are not acute changes compared to [facility]. Continue aspirin, carvedilol, clopidogrel and losartan ESRD on HD- Continue usual supportive medications: Calcium acetate, Cinacalcet, sevelamer and vitamin B/vitamin C/folic acid Usual dialysis days are Saturday, Saturday and Saturday Due for dialysis tomorrow Consult nephrology GERD- Continue pantoprazole Hyperlipidemia- Continue atorvastatin PG Care Time/CCT Total # of Minutes Spent Total Time Spent with Patient: Total time spent is greater than 50% in coordination of care (as documented) at patient's floor/unit and/or counseling patient: Coding [place] [address] INT INP/OBS CARE 3/75MIN Patient Type Established Medical Decision Making High Complexity Diagnoses Abdominal pain R10.9 Elevated troponin R79.89 ESRD needing dialysis N18.6; Z99.2 Thrombocytopenia D69.6 Paroxysmal atrial fibrillation I48.0 Ischemic cardiomyopathy I25.5 Coronary artery disease I25.10 GERD (gastroesophageal reflux disease) K21.9 Benign essential hypertension I10
[2023-06-27] MEDS: SIMETHICONE 80 MG CHEW PO ONE (21:08)
[2023-06-27] MEDS: FAMOTIDINE 20 MG TAB PO ONE (21:09)
[2023-06-27] MEDS: PANTOprazole 40 MG TAB PO STA (21:09)
[2023-06-27] MEDS: ACETAMINOPHEN 500 MG TAB PO STA (21:09)
[2023-06-27] MEDS: PANTOprazole 40 MG TAB PO SCH (23:24)
[2023-06-27] MEDS: carvediloL 12.5 MG TAB PO SCH (23:28)
[2023-06-27] MEDS: ATORVASTATIN 40 MG TAB PO SCH (23:28)
[2023-06-28] MEDS ORDERED: ACETAMINOPHEN 325 MG TAB PO PRN (01:00)
[2023-06-28] MEDS ORDERED: SIMETHICONE 80 MG CHEW PO PRN (02:00)
[2023-06-28 07:16] LABS: Albumin Globulin Ratio 1.3 (0.9-2); Albumin Level 3.1 gm/dl (3.4-5.0); BUN Creatinine Ratio 5.8 (10-20); Bilirubin,Total 0.6 mg/dl (0.2-1.0); Calcium 9.1 mg/dl (8.6-10.3); Creatinine Clr Calc Pharmacy 8.3 ml/min; Est GFR (African American) 7.8 ml/min; Est GFR (Non-African American) 6.8 ml/min; Globulin 2.4 gm/dl (2.5-4.0); Magnesium 2.1 mg/dl (1.7-2.4); Phosphorus 4.1 mg/dl (2.5-4.9); Potassium 4.4 mmol/L (3.5-5.1); Total Protein 5.5 gm/dl (6.0-8.3)
[2023-06-28 07:24] LABS: Basophils # (auto) 0.03 K/uL (0.00-0.20); Basophils % (auto) 0.7 %; Eosinophils # (auto) 0.34 K/uL (0.00-0.50); Eosinophils % (auto) 7.8 %; Hematocrit (blood only) 27.2 % (42.0-52.0); Hemoglobin 9.1 g/dl (14.0-18.0); Immature Granulocytes # (auto) 0.02 K/uL (0.01-0.20); Immature Granulocytes % (auto) 0.5 %; Mean Corpuscular Hemoglobin 31.3 pg (25.0-34.0); Mean Corpuscular Hgb Conc 33.5 g/dL (32.0-36.0); Mean Corpuscular Volume 93.5 fL (80.0-100.0); Mean Platelet Volume 9.8 fL (9.4-12.4); Monocytes # (auto) 0.45 K/uL (0.11-0.59); Monocytes % (auto) 10.3 %; Neutrophils # (auto) 2.84 K/uL (1.40-6.50); Neutrophils % (auto) 64.7 %; Platelet Count 96 K/uL (130-400); Platelet Estimate Decreased (Normal); Polychromasia 1+; RDW Coefficient of Variation 16.1 % (11.5-14.5); RDW Standard Deviation 54.2 fL (36.4-46.3); Red Blood Count 2.91 M/uL (4.70-6.10); White Blood Count 4.38 K/ul (4.8-10.8)
[2023-06-28 07:30] LABS: Troponin I High Sensitivity 51.1 pg/ml (0-20)
[2023-06-28 07:36] LABS: INR 1.1 (0.9-1.1); Prothrombin Time 11.8 Seconds (9.0-12.0)
--- NOTE | 2023-06-28 08:20 | Cardiology Consultation ---
Date of Consultation June 28, 2023 Assessment & Plan (1) Abdominal pain: (2) Ischemic cardiomyopathy: (3) Elevated troponin: Plan Patient admitted with left sided epigastric pain, worse with deep inspiration and laying on left side. EKG on admission demonstrated NSR with T wave inversions in lateral leads. Compared to prior EKG's at [facility], no acute changes. Troponin minimally elevated and flat consistent with underlying ischemic cardiomyopathy and elevated creatinine due to ESRD. Not indicative of ACS. At time of NSTEMI in May his troponin was approx 1200. chest CTA on admission was negative for acute PE. He has recent complex cardiac history of 3 KASHMIR on 05/27/23 and LVEF < 20%. Current symptoms are not anginal equivalent. He also has recent complex history of GI complaints issues including possible thickening of sigmoid colon, possible issues with diverticulitis, possible iron overload in the spleen and liver and possible . No imaging done of the abdomen on arrival. Recommend abdominal CT with and without IV contrast for further evaluation of his current complaints. He was scheduled for EGD with EUS in June but this was cancelled due to recent cardiac events and need for dual antiplatelet therapy. Consider GI evaluation/consult Echocardiogram also ordered and pending. ESR/CRP also pending. Consider referred pain from pericarditis? No pericardial effusion on CT scan. Continue current cardiac medications. Needs to remain on ASA and Plavix without interruption. Continue atorvastatin Continue carvedilol. Patient is not on diuretics as he does not make urine. Appears euvolemic. Volume status monitored and treated with HD. He is due for HD today. Follows with [facility] (Dr. Luna) Case discussed with Dr. Huerta I spent a total of 65 minutes on the date of service in preparation, delivery, and documentation of the care provided to this patient, excluding any time spent in the performance of separately billed services. Jamaica Hall PA-C Department of Cardiology, [facility] This chart was completed in part utilizing Speech Voice Recognition Software. Grammatical errors, random word insertions, pronoun errors, and incomplete sentences are an occasional consequence of this system due to software limit ations, ambient noise, and hardware issues. Any formal questions or concerns about the content, text, or information contained within the body of this dictation should be directly addressed to the provider for clarification. Supervising Physician Co-Signing Physician Notes Attending attestation: Case reviewed with the advanced practitioner. I have personally performed a history and physical examination on the patient. I have reviewed the advanced practitioner's documentation on the date of service referenced in note, and I agree with, and take responsibility for the plan of care. Subjective: Patient in no distress during my assessment. Describes 1/10 intensity left upper quadrant abdominal discomfort, at the left rib margin. He states this is different than the chest pressure that prompted his recent hospital stay where he was found to have a non-STEMI. Exam: Patient has bilateral upper extremity AV fistulas, his left upper arm fistula no longer functions in the receives dialysis through the right upper arm AV fistula. The noninvasive blood pressure cuff had been placed on his right lower leg and multiple elevated measurements are noted. He states that he usually has his blood pressure performed in the left forearm when he is at his routine dialysis sessions. I therefore placed the cuff on the left forearm and the blood pressure measurement was improved down to 132/59 at the time my assessment. Cardiovascular: Regular rhythm, no murmurs, no edema Pulmonary: Lungs clear to auscultation bilaterally Data: Minimally elevated troponin I measurements of 48, 44.6, 39, 52, and 51 PG per mL in the setting of end-stage renal disease. These measurements however are significantly lower than the presenting measurements when he presented with non-STEMI at [facility] in May, CT angiogram of the chest reviewed, no pulmonary embolism, chronic descending thoracic aortic dissection. Serial EKG tracing was reviewed with lateral ST-T wave changes, relatively unchanged compared to recent tracings performed at [facility] without suggestion of acute ischemia. Impression/ Plan: -Recommend proceeding with a CT angiogram of the abdomen and pelvis to rule out aortic pathology or distal to the [id number] of the previous CT. Also, patient has a past history of diverticulitis and the CT would allow visualization for this as well. -Ejection fractions of varying values noted in record. Most recently at the time of hospitalization last month LVEF was less than 20%. Repeat echocardiogram has been requested and will be reviewed. -As noted, I question if the elevated blood pressure readings are falsely high due to the method of taking his blood pressure. Blood pressure improved when taking through his left upper arm as per his usual routine. -Continue medical therapy for underlying CAD and heart failure with reduced ejection fraction due to ischemic cardiomyopathy with aspirin, clopidogrel, atorvastatin, carvedilol, atorvastatin. -As noted, the symptoms are different in character than that which led to his the recent cardiac catheterization, and if he was having an early stent issue, he would be expected to have clear symptoms of angina, EKG changes, and significant troponin elevation. His workup thus far is therefore reassuring. -Erythrocyte sedimentation rate minimally elevated at 31 mm/h. C-reactive protein currently pending. No pericardial effusion noted on CT angiogram. Repeat echocardiogram pending. The patient's symptoms which are reproduced with deep inspiration may be an atypical presentation for pericarditis, but there is also no stigmata suggesting pericarditis on his EKG. I spent a total of 30 minutes coordinating, documenting, and providing care for this patient excluding time spent in the performance of separately billed services or time spent by another provider. Alphonso Huerta, History of Present Illness Reason for Consultation: pleuritic pain; CAD; LVEF < 20% Requesting Physician: Dr. Mcguire Attending Physician: Dr. Huerta History of Present Illness Mr Ruiz is a 77 year old male presenting to [facility] with left sided abdominal pain, underneath left lower rib starting 1-2 days prior to admission. He has a complex history includin. Recent admission to [facility] for NSTEMI in May 2023 with LVEF < 20% and receiving 3 KASHMIR - 2 to the LAD, 1 to the RCA on 05/27/23. Patient follows with [facility] as an outpatient. 2. ESRD on HD 3 days per week - history of kidney transplant (failed) 3. History of chronic thoracic aortic dissection 4. Episode of PAF during admission in May 2023. Deemed not an anticoagulation candidate due to high risk for bleeding complications and needing dual antiplatelet therapy Patient admitted after two days of left upper quadrant abdominal pain. Worse when laying on his left sided and worse with deep inspiration. Pain is located left epigastric region, underneath left rib cage. No associated nausea/vomiting/diarrhea. Eating often helps his symptoms. He has a long history of GI issues and has been followed closely by GI in the outpatient setting. he had an abnormal abdominal MRI back in January. He was to have f/u EGD/EUS in June 2023 but this has delayed after having NSTEMI with 3 KASHMIR. Since stent placement in May 2023, patient denies recurrent chest pain. He has been taking all medications as prescribed. Upon discharge at [facility], isosorbide and amlodipine were discontinued due to hypotension. This abdominal pain is "different" than his chest pain symptoms he presented to [facility] in May at time of NSTEMI. Upon arrival to the ER, EKG demonstrated NSR with T wave inversion in lateral leads. Similar to tracings at [facility] in May 2023. Troponin minimally elevated but flat ranging 44-53. D. Dimer was elevated at 2530. Chest CT that was negative for PE. chronic dissection of descending aorta remained unchanged. He was admitted for further evaluation. AT time of consult, patient resting in bed comfortably. Reports ongoing dull "ache" left side of his abdomen, worse with deep inspiration. No tenderness. Worse when laying on left side. Feels his symptoms are slightly improved from admission but still present. He denies chest pain or dyspnea. No palpitations. No orthopnea, PND or edema. No recent fevers, illnesses. No n/v/d Allergies Allergy/AdvReac Type Severity Reaction Status Date / Time No Known Allergies Allergy Verified 06/27/23 09:06 Home Medications Medication Instructions Recorded Confirmed Type nitroglycerin 0.4 mg sublingual 0.4 mg sublingual Q5M PRN chest 07/11/21 06/27/23 Rx tablet pain #25 tabs calcium acetate 667 mg tablet 667 mg PO BID #60 tabs 05/04/22 06/27/23 Rx cinacalcet 30 mg tablet 30 mg PO QPM 06/04/22 06/27/23 History aspirin 81 mg tablet,delayed 81 mg PO QAM 06/22/22 06/27/23 History release (Adult Low Dose Aspirin) heparin (porcine) 1,000 unit/mL 2,000 unit IV .COMPLEX 05/14/23 06/27/23 History injection solution vitamin B complex-vitamin C-folic 1 tab PO QPM 05/14/23 06/27/23 History acid 0.8 mg tablet (Isis-Jomar) atorvastatin 80 mg tablet 80 mg PO QPM #90 tabs 06/12/23 06/27/23 Rx pantoprazole 40 mg tablet,delayed 40 mg PO BID #180 tabs 06/12/23 06/27/23 Rx release triamcinolone acetonide 0.1 % 1 applic topical BID PRN 06/12/23 06/27/23 Rx topical cream widespread itch #454 grams carvedilol 12.5 mg tablet 12.5 mg PO BID #180 tabs 06/27/23 06/27/23 Rx clopidogrel 75 mg tablet 75 mg PO DAILY #90 tabs 06/27/23 06/27/23 Rx losartan 25 mg tablet 12.5 mg (1/2 x 25 mg) PO DAILY #45 06/27/23 06/27/23 Rx tabs sevelamer HCl 800 mg tablet 800 mg PO UD 06/27/23 06/27/23 History Patient History Medical History (Updated 06/28/23 @ 04:12 by Elida Armenta PA-C) Pleuritic chest pain Itch Paroxysmal atrial fibrillation Ischemic cardiomyopathy NSTEMI (non-ST elevated myocardial infarction) Lower abdominal pain COVID-19 virus infection Viral URI Vitamin B 12 deficiency Coronary artery disease Epigastric pain determined by examination Diverticulitis History of Mohs micrographic surgery for skin cancer x3--2 on scalp, 1 on back AV fistula x2--one one each arm; RIGHT ARM is FUNCTIONING PVCs (premature ventricular contractions) follows with [facility] Cardiology Chronic GERD Epigastric abdominal pain Cervical neck pain with evidence of disc disease Nontraumatic complete tear of right rotator cuff Osteoarthritis of right shoulder Dyslipidemia Chronic low back pain Cervicalgia IgA nephropathy Squamous cell carcinoma of scalp hx of; MOHS procedure Aortic dissection roughly 5yrs ago--per pt happened at [facility] during heart cath--per pt no repair needed---follows with Dr. 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 kidney transplant while taking large doses of a steroid--pt states it resolved after awhile ESRD needing dialysis dialysis on Sat-Sat-Sat @ [facility] Elevated PSA Hyperlipemia, mixed Benign essential hypertension Hypomagnesemia Obstructive sleep apnea of adult Osteoarthritis of knees, bilateral Pulmonary embolism per pt happened during surgery @ [facility] "within the last 10yrs, I dont remember how long ago" Surgical History History of repair of left rotator cuff History of repair of right rotator cuff S/P arteriovenous (AV) fistula creation x2--per pt one on each arm, right arm is FUNCTIONING fistula History of colonoscopy History of tooth extraction History of bilateral cataract extraction History of cardiac cath roughly 5yrs ago @ [facility]--caused an aortic dissection--no stents 05/27/2023 Coronary angiography w/left heart cath (Right) CORONARY ANGIOGRAPHY W/LEFT HEART CATH performed by Janet Larios MD at [facility] Kidney replaced by transplant per pt 2012 @ [facility] History of hernia repair umbilical hernia repair History of tonsillectomy Family History Other No family history of adverse response to anesthesia No pertinent family history Denies family history of Ovarian cancer Prostate cancer Myocardial infarction Breast cancer Colorectal cancer Social History Smoking Status: Unknown if ever smoked Second Hand Exposure: No; Do You Dip or Chew Tobacco: No; Hx Alcohol Use: No Hx Substance Use: No Preferred Language: [place] Communication Ability: Effective Visual Impairment: No Limitations Hearing Ability: Normal Social Media Marketing Analyst Required: No Beliefs That Will Affect Care: None marital status: Current Living Situation: Family current occupational status: retired Feels Safe at Home: Yes Safety Concerns: Feels Safe At This Time Childhood Exposure to Second-Hand Smoke: No caffeine: Yes (coffee ) Dental Care, Regularly: Yes Physical Activity Frequency: Does not Exercise Seatbelt Use: sometimes Sunscreen Use: Yes Assistive Devices: CPAP and Glasses Review of Systems Review of Systems: All systems reviewed & are unremarkable except as noted in HPI & below Physical Exam Constitutional: WD/WN, vitals as above no acute distress Neck: trachea midline, no thyromegaly Respiratory: no respiratory distress Auscultation: lungs clear to auscultation bilaterally Cardiovascular: Rate/Rhythm: regular rate and regular rhythm Heart Sounds: no murmur (distant heart sounds) Vessels: no JVD Extremities: no edema Gastrointestinal (Abdomen): Inspection/Auscultation: abdomen normal to inspection; abdomen not distended Percussion/Palpation: abdomen soft; abdomen nontender Musculoskeletal: no cyanosis or clubbing, extremities motor strength 5/5 Neurologic: PERRL, EOMI, accommodation nl, no face palsy, no dysarthria Psychiatric: A+Ox3, euthymic affect Results & Data Vital Signs (Past 12 Hours) Vital Signs Temp Pulse Pulse Resp BP Pulse Ox Pulse Ox 06/28/23 07:18 72 06/28/23 05:55 36.8 C 67 12 181/88 H 94 06/28/23 00:33 67 16 214/79 H 97 06/28/23 00:15 70 06/27/23 23:38 36.8 C 70 16 96 06/27/23 23:04 194/84 H 06/27/23 23:00 77 16 96 06/27/23 22:53 96 06/27/23 21:10 81 19 148/87 H 97 06/27/23 20:42 75 17 97 O2 Del Method O2 Del Method 06/28/23 07:18 06/28/23 05:55 Room Air 06/28/23 00:33 Room Air 06/28/23 00:15 06/27/23 23:38 Room Air 06/27/23 23:04 06/27/23 23:00 Room Air 06/27/23 22:53 Room Air 06/27/23 21:10 Room Air 06/27/23 20:42 Room Air Laboratory Results Cardiac Enzymes 06/27/23 06/27/23 06/27/23 Range/Units 15:34 17:20 23:00 AST 12 L (13-39) U/L Troponin I High Sens 44.6 H 39.0 H 52.6 H* D (0-20) pg/ml 06/28/23 Range/Units 06:32 AST 10 L (13-39) U/L Troponin I High Sens 51.1 H* (0-20) pg/ml Coagulation 06/27/23 06/28/23 Range/Units 15:34 06:32 PT 11.8 11.8 (9.0-12.0) Seconds APTT 29 (21-31) Seconds CBC 06/27/23 06/28/23 Range/Units 15:34 06:32 WBC 5.54 4.38 L (4.8-10.8) K/ul RBC 3.19 L 2.91 L (4.70-6.10) M/uL Hgb 10.0 L 9.1 L (14.0-18.0) g/dl Hct 30.0 L 27.2 L (42.0-52.0) % Plt Count 114 L 96 L (130-400) K/uL Neut # (Auto) 3.74 2.84 (1.40-6.50) K/uL Lymph # (Auto) 0.80 L 0.70 L (1.20-3.40) K/uL [place] # (Auto) 0.60 H 0.45 (0.11-0.59) K/uL Eos # (Auto) 0.34 0.34 (0.00-0.50) K/uL Baso # (Auto) 0.04 0.03 (0.00-0.20) K/uL Comprehensive Metabolic Panel 06/27/23 06/28/23 Range/Units 15:34 06:32 Sodium 136 134 L (136-145) mmol/L Potassium 4.2 4.4 (3.5-5.1) mmol/L Chloride 95 L 97 L (98-107) mmol/L Carbon Dioxide 33 H 30 (21-32) mmol/L BUN 34 H 41 H (6-23) mg/dl Creatinine 5.83 H* 7.02 H* D (0.6-1.4) mg/dl Glucose 138 H 85 (70-99(Fasting)) mg/dl Calcium 9.6 9.1 (8.6-10.3) mg/dl AST 12 L 10 L (13-39) U/L ALT 10 8 (7-52) U/L Alkaline Phosphatase 107 H 101 (34-104) U/L Total Protein 6.4 5.5 L (6.0-8.3) gm/dl Albumin 3.6 3.1 L (3.4-5.0) gm/dl Intake and Output 06/27/23 06/28/23 06/28/23 22:59 06:59 14:59 Intake Total 500 / 500 Balance 500 / 500 Intake: IV 500 / 500 Sodium Chloride 0.9% 500 ml @ 500 / 500 999 mls/hr IV .Q31M ONE Rx#: [id number] Other: Weight 71.4 kg Weight Measurement Method Built in [facility] Diagnostic Findings Telemetry: NSR, with PVC's. There were several non sustained runs of complex giovany tricular ectopy lasting 3-4 beats EKG from admission on 06/26: NSR with PVC T wave inversion in V5-V6 EKG repeat from 06/26: NSR T wave inversions in lateral leads - no change from previous Chest CTA report reviewed from 06/26 IMPRESSION: 1. No pulmonary emboli identified. 2. 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 No acute dissection within the chest. 3. Trace left pleural effusion. 4. Mild cardiomegaly. Extensive coronary calcification. Prior echo in May 2023: Interpretation Summary The primary indication after review was deemed appropriate and the examination was performed. The qualitative LV ejection fraction is <20% (severely reduced). There is a large sized apical, septal, anteroseptal, anterior, inferior, posterior, and lateral wall motion abnormality with akinesis of the segments. The left ventricular diastolic function is mildly abnormal (grade I). Pulmonary hypertension is present. The PA systolic pressure is > 39 mmHG. Cath report reviewed from May 2023: Coronary disease - hemodynamically significant Patient was hypotensive during procedure after diagnostic angiogram. He was not a candidate for mechanical assist device because of chronic aortic dissection. Ad hoc PCI was performed. Ostial RCA with 95% stenosis s/p PCI with [id number] Synergy KASHMIR. Distal LMCA/ostial LAD with 99% stenosis s/p PCI with [id number] Synergy KASHMIR. Ostial cx was pinched which was treated with KBI with 3.0mm balloon in the LAD and 2.75mm balloon in the Cx. Distal edge of the LAD stent was covered with [id number] Synergy KASHMIR. Final angiogram showed excellent result, resolution of stenosis, RODRIGO III flow Medications Administered Current Inpatient Medications Acetaminophen (Acetaminophen 325 Mg Tab) 650 mg PO Q6H PRN PRN Reason: pain(1-4),headache,fever Stop: 07/28/23 00:59 Aspirin (Aspirin 81 Mg Ectab) 81 mg PO QAM [facility] Stop: 07/28/23 08:59 Atorvastatin Calcium (Atorvastatin 40 Mg Tab) 80 mg PO QPM CARLOS Stop: 07/27/23 22:18 Last Admin: 06/27/23 23:28 Dose: 80 mg Calcium Acetate (Calcium Acetate 667 Mg Cap/Tab) 667 mg PO BIDM [facility] Stop: 07/28/23 07:59 Carvedilol (Carvedilol 12.5 Mg Tab) 12.5 mg PO BID CARLOS Stop: 07/27/23 22:18 Last Admin: 06/27/23 23:28 Dose: 12.5 mg Clopidogrel Bisulfate (Clopidogrel Bisulfate 75 Mg Tab) 75 mg PO DAILY [facility] Stop: 07/28/23 08:59 Famotidine (Famotidine 20 Mg Tab) 20 mg PO BID [facility] Stop: 07/28/23 08:59 Pantoprazole Sodium (Pantoprazole 40 Mg Tab) 40 mg PO BID [facility] Stop: 07/27/23 22:18 Last Admin: 06/27/23 23:24 Dose: Not Given Sevelamer HCl (Sevelamer Hcl 800 Mg Tablet) 800 mg PO TIDM [facility] Stop: 07/28/23 07:59 Simethicone (Simethicone 80 Mg Chew) 80 mg PO Q6H PRN PRN Reason: bloating Stop: 07/28/23 01:59
--- NOTE | 2023-06-28 08:21 | Hospitalist Progress Note ---
Date of Service June 28, 2023 Assessment & Plan (1) Abdominal pain: Plan: Noel Ruiz is a 77 year old male with a PMH significant for CAD S/P recent NSTEMI and PCI with KASHMIR placement to the RCA, distal LMCA/ostial LAD, at [facility] on 05/27/23, HFrEF (LVEF of <20%), thoracic aortic aneurysm, atrial fibrillation (not on anticoagulation due to bleeding risk), ESRD on HD MWF, GERD and hiatal hernia, complex sleep apnea syndrome who presented to the [facility] ED on 06/27/23 due to acute onset of left sided chest pain with inspiration / LUQ pain. Underwent CTA of the chest which was negative for PE and showed a stable chronic thoracic aortic dissection/aneurysm I reviewed records from previous hospitalization at [facility]. Per discharge summary from 05/2023 he had epigastric pain at that time as well, outpatient EGD has been scheduled for June with [facility] (he cancelled). He was seen by general surgery and GI for this issue and abdominal CTA was negative for stenoses to cause mesenteric ischemia, HIDA scan was also negative. Had bid PPI and short course of carafate. Was supposed to be on bid PPI but that got mixed up and he was only taking it daily. Also seen by [facility] GI late Apr being evaluated for interventional procedure to treat his hiatal hernia. Those notes document MRCP study fall 2022 with similar findings to today's CTA including the IPMNs. He also had negative gastric emptying study in the past. CTA of abdomen ordered by cardiology this am reviewed, no change in chronic thoracic dissection. Possible small focal area of mild diverticulitis of sigmoid colon. -On exam, the patient's discomfort is in an extremely focal location upper abdomen epigastric area just left of midline. This area is nontender however. Rest of abdomen also nontender -the focality and aggravation with breathing and moving are suggestive of musculoskeletal pain, abdominal wall pain. No hernia or incisions in this area and no back pain or rash. -some character of the pain is suggestive of upper GI source - GERD, dyspepsia, gastritis or PUD. -Continue BID pantoprazole and famotidine PRN -Put in request to reschedule with [facility] - consider EGD (2) Elevated troponin: Plan: Hx multivessel CAD with NSTEMI last month treated at [facility] with PCI - KASHMIR to L main/LAD, angioplasty of circ, KASHMIR to RCA -high sen trop mildly elevated at 44 --> 39 --> 52 --> 51. Much lower than on recent discharge from his NSTEMI -[facility] Cardiology was consulted and confirmed no acute ECG changes compared to recent admission at [facility] -Likely a combination of mild demand from his severely reduced EF and falsely elevated due to his ESRD status -Continue aspirin and plavix, atorvastatin recently increased to 80 -repeat TTE done today - Discussed with Dr. Huerta - EF has improved from 20% at time of NSTEMI to 45-50% -ok for discharge from cardiology standpoint, follow up with [facility] cardiology (3) ESRD needing dialysis: Plan: -Typical dialysis schedule is MWF -consulted senior boiler operator, dialyzed this afternoon (4) Thrombocytopenia: Plan: -Platelets of 114 --> 96. Possibly related to Plavix? monitor for hemolysis or rash. Pancytopenic but WBC and Hct not significantly different from his baseline. -No signs of bleeding, no rash, no fever, not suspicious for TTP -Have to continue DAPT at this time with his recent KASHMIR placement -follow up in cardiology and/or primary care with repeat CBC -instructed to call immediately if he gets significant rash on plavix (5) Paroxysmal atrial fibrillation: Plan: -Reportedly developed new onset, paroxysmal afib during his admission at [facility] last month -Per the discharge summary, anticoagulation was not started due to the patient's bleeding risk, on DAPT -Has been in sinus rhythm today -Continue Carvedilol (6) Ischemic cardiomyopathy: Plan: -Currently euvolemic -LVEF of < 20% on echo obtained at [facility] during last admission -EF improved to 40-45% on today's Echo (7) Coronary artery disease: Plan: -Continue aspirin and plavix (8) GERD (gastroesophageal reflux disease): Plan: see above (9) Benign essential hypertension: Plan: cont carvedilol/losartan Plan 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 Followed by [facility] vascular surgery. Stable on CTA chest and abdomen today HFrEF - is on b-sowmya and ARB, volume managed by HD Admission and Anticipated Discharge Date Admission Date: June 27, 2023 Subjective Has pain in a very focal location in upper abdomen just left of midline. He can actually put his finger on the spot. Its 1-2/10 at rest very mild but sometimes spikes, aggravated by moving around "grunting" and breathing, sometimes radiates to the back. Pain is better after eating and worse on empty stomach. No fevers/chills and no lower abdominal/pelvic pain Physical Exam 2 Physical Exam: PHYSICAL EXAMINATION Last 24h vital signs reviewed, see documentation in flowsheet General: comfortable appearing, no distress HEENT: Normocephalic, atraumatic, pupils round and equal, sclerae anicteric, no conjunctival injection, moist mucus membranes Lungs: Normal respiratory effort. Clear to auscultation bilaterally. No RRW Heart: Regular rate and rhythm, no murmurs. No JVD Abdomen: Soft, nontender, focal area of pain is not tender, nondistended. Bowel sounds present. Extremities: Warm, dry, well-perfused. No extremity edema. Bilateral UE AV fistulas Neuro: Alert and oriented x 4, face symmetric, moves 4 extremities well Psych: Normal affect and behavior Results & Data Results & Data Vital Signs (Past 12 Hours) Vital Signs Temp Pulse Pulse Resp BP Pulse Ox Pulse Ox 06/28/23 07:18 72 06/28/23 05:55 36.8 C 67 12 181/88 H 94 06/28/23 00:33 67 16 214/79 H 97 06/28/23 00:15 70 06/27/23 23:38 36.8 C 70 16 96 06/27/23 23:04 194/84 H 06/27/23 23:00 77 16 96 06/27/23 22:53 96 06/27/23 21:10 81 19 148/87 H 97 06/27/23 20:42 75 17 97 O2 Del Method O2 Del Method 06/28/23 07:18 06/28/23 05:55 Room Air 06/28/23 00:33 Room Air 06/28/23 00:15 06/27/23 23:38 Room Air 06/27/23 23:04 06/27/23 23:00 Room Air 06/27/23 22:53 Room Air 06/27/23 21:10 Room Air 06/27/23 20:42 Room Air Laboratory Results 06/28/23 06:32 06/28/23 06:32 PG Care Time/CCT Total # of Minutes Spent Total Time Spent with Patient: I personally spent: 65 minutes today on clinical care activities including: reviewing chart notes and vital signs reviewing labs reviewing studies reviewing old records discussion with clinical operations consultant(s) examining and counseling the patient counseling the patient's family writing orders, discharge instructions documentation Coding Level of Care Code None Diagnoses Abdominal pain R10.9 Elevated troponin R79.89 ESRD needing dialysis N18.6; Z99.2 Thrombocytopenia D69.6 Paroxysmal atrial fibrillation I48.0 Ischemic cardiomyopathy I25.5 Coronary artery disease I25.10 GERD (gastroesophageal reflux disease) K21.9 Benign essential hypertension I10
[2023-06-28] MEDS: SEVELAMER HCL 800 MG TABLET PO SCH ×2 (08:28→19:50)
[2023-06-28] MEDS: CALCIUM ACETATE 667 MG CAP/TAB PO SCH (08:28)
[2023-06-28] MEDS: ASPIRIN 81 MG ECTAB PO SCH (08:29)
[2023-06-28] MEDS: FAMOTIDINE 20 MG TAB PO SCH (08:30)
[2023-06-28] MEDS: CLOPIDOGREL BISULFATE 75 MG TAB PO SCH (08:30)
[2023-06-28] MEDS ORDERED: SODIUM CHLORIDE 0.9% 1,000 ML IV PRN (09:54)
[2023-06-28] MEDS: OPTIRAY 320 125ml IV ONE (11:20)
--- NOTE | 2023-06-28 12:04 | CT Scan Report ---
CT angio abd pelvis wo/w con HISTORY: 77 years-old Male left upper quadrant pain acute left upper quadrant abdominal pain in a pa tient with history of colonic diverticulosis. Dialysis patient. COMPARISON: CTA chest 06/27/2023, CT abdomen and pelvis 06/04/2012 TECHNIQUE: CTA of the abdomen and pelvis was obtained with and without IV contrast. 3-D coronal and s agittal images were obtained and reviewed. All measurements were obtained according to NASCET criteri a. A dose lowering technique was used consistent with the principals of MARYCHUY. FINDINGS: CTA: Moderate cardiomegaly. Opacified venous collaterals of the left chest wall and flank. Evaluation of the distal descending thoracic aorta focally on image 36 series 5 measures 3.7 x 3.6 cm. There is a left lateral chronic appearing saccular aneurysm at this level which measures 3.1 x 1.6 x 3.2 cm i n AP, transverse and craniocaudal dimensions. There is no abdominal aortic aneurysm or dissection. Th e celiac trunk, superior and inferior mesenteric arteries are widely patent. No areas of active extra vasation. The iliac and imaged femoral arteries are also patent. There is a least moderate stenosis o f the renal arteries to the [place] kidneys. The feeding artery within the right hemipelvis to the tra nsplanted kidney is patent. CT ABDOMEN AND PELVIS: Trace pleural effusions with mild dependent subsegmental bibasilar atelectasis. There is no free air. Unremarkable spleen, and adrenal glands. Atrophic pancreas with numerous cystic foci suggestive of s idebranch IPMN's measuring up to 8 mm. Partial distention of the gallbladder with wall thickening. Sc attered hepatic cysts redemonstrated. Atrophic [place] kidneys with innumerable complex and simple cysts. 5 mm calcification of the interpol ar left kidney. Transplanted kidney within the abdominal right lower quadrant demonstrates cortical t hinning with innumerable cysts. No hydronephrosis. Trace free pelvic fluid. Colonic diverticulosis. T here is wall thickening of the sigmoid with adjacent inflammatory stranding centered around a sigmoid diverticulum on image 255 series 5. No abscess. No CT evidence of acute appendicitis. Unremarkable s oft tissues. Degenerative changes of the spine, pelvis and hips. IMPRESSION: 1. Extensive colonic diverticulosis with findings suggestive of mild acute sigmoid diverticulitis. Fi ndings could be correlated with follow-up colonoscopy after treatment course. 2. Trace pelvic ascites. No pneumoperitoneum or abscess. 3. No bowel obstruction. 4. Atherosclerosis with 3.1 x 1.6 x 3.2 cm saccular aneurysm of the distal descending thoracic aorta. 5. Additional findings as above. ACT 112: Negative or not required by law. The above report was generated using voice recognition software. It may contain grammatical, syntax o r spelling errors. Electronically signed by: William Cerna M.D. 06/28/2023 12:02 PM
--- NOTE | 2023-06-28 13:07 | Nephrology Consultation ---
Date of Consultation June 28, 2023 Assessment & Plan (1) ESRD needing dialysis: today is his normal dialysis day. He has good blood pressure and good AV fistula. despite ejection fraction of less than 20% he actually looks fairly healthy and does not have any evidence of fluid overload. dialysis today for 3 hours 30 minutes on a 2K bath and will try to take about 2 and half to 3 kilos off. all of the electrolytes are within normal range. reviewed Cardiology note regarding this being low suspicion for acute coronary syndrome. he had 3 drug-eluting stents placed just 1 month ago History of Present Illness Attending Physician: Kevin Mcguire MD History of Present Illness 77/M with ESRD on dialysis---MWF. He is also S/p Failed renal Transplant 2012. had Ig A Nephropathy as cause of ESRD. Also has CAD S/P recent NSTEMI and 3 KASHMIR placement at [facility] on 05/27/23, HFrEF (LVEF of <20%), thoracic aortic aneurysm, atrial fibrillation (not on anticoagulation due to bleeding risk), ESRD on HD MWF, GERD, sleep apnea syndrome, dyslipidemia who presented to the [facility] ED on 06/27/23 due to acute onset of Upper abd/ left sided chest pain with inspiration. Labs were significant for a thrombocytopenia of 114, d-dimer of 2530, Slightly elevated but flat troponin profile. CTA of the chest negative for PE. Last Dialysis was Sat. Due for later today. he denies being short of breath. vital signs normal at this time. does not have any edema at all. no issues with dialysis or AV fistula in the recent past. review of systems------ as detailed in HPI unless stated otherwise 12 systems reviewed and negative. was also present at the bedside to add history physical examination elderly white male who does not appear to be in any respiratory distress at this time. awake alert oriented and was able to give detailed account of his complicated medical history mucous membrane is moist neck is supple no JVD chest bilateral clear to auscultation CVS S1 and S2 regular soft systolic murmur heard. No edema abdomen is soft nontender not distended extremities no edema skin did not show any rash neuropsych--- normal affect and normal speech. Moving all 4 extremities no focal deficit Allergies Allergy/AdvReac Type Severity Reaction Status Date / Time No Known Allergies Allergy Verified 06/27/23 09:06 Home Medications Medication Instructions Recorded Confirmed Type nitroglycerin 0.4 mg sublingual 0.4 mg sublingual Q5M PRN chest 07/11/21 06/27/23 Rx tablet pain #25 tabs calcium acetate 667 mg tablet 667 mg PO BID #60 tabs 05/04/22 06/27/23 Rx cinacalcet 30 mg tablet 30 mg PO QPM 06/04/22 06/27/23 History aspirin 81 mg tablet,delayed 81 mg PO QAM 06/22/22 06/27/23 History release (Adult Low Dose Aspirin) heparin (porcine) 1,000 unit/mL 2,000 unit IV .COMPLEX 05/14/23 06/27/23 History injection solution vitamin B complex-vitamin C-folic 1 tab PO QPM 05/14/23 06/27/23 History acid 0.8 mg tablet (Isis-Jomar) atorvastatin 80 mg tablet 80 mg PO QPM #90 tabs 06/12/23 06/27/23 Rx pantoprazole 40 mg tablet,delayed 40 mg PO BID #180 tabs 06/12/23 06/27/23 Rx release triamcinolone acetonide 0.1 % 1 applic topical BID PRN 06/12/23 06/27/23 Rx topical cream widespread itch #454 grams carvedilol 12.5 mg tablet 12.5 mg PO BID #180 tabs 06/27/23 06/27/23 Rx clopidogrel 75 mg tablet 75 mg PO DAILY #90 tabs 06/27/23 06/27/23 Rx losartan 25 mg tablet 12.5 mg (1/2 x 25 mg) PO DAILY #45 06/27/23 06/27/23 Rx tabs sevelamer HCl 800 mg tablet 800 mg PO UD 06/27/23 06/27/23 History Patient History Medical History Pleuritic chest pain Itch Paroxysmal atrial fibrillation Ischemic cardiomyopathy NSTEMI (non-ST elevated myocardial infarction) Lower abdominal pain COVID-19 virus infection Viral URI Vitamin B 12 deficiency Coronary artery disease Epigastric pain determined by examination Diverticulitis History of Mohs micrographic surgery for skin cancer x3--2 on scalp, 1 on back AV fistula x2--one one each arm; RIGHT ARM is FUNCTIONING PVCs (premature ventricular contractions) follows with [facility] Cardiology Chronic GERD Epigastric abdominal pain Cervical neck pain with evidence of disc disease Nontraumatic complete tear of right rotator cuff Osteoarthritis of right shoulder Dyslipidemia Chronic low back pain Cervicalgia 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 after kidney transplant while taking large doses of a steroid--pt states it resolved after awhile ESRD needing dialysis dialysis on Sat-Sat-Sat @ [facility] [place] Elevated PSA Hyperlipemia, mixed Benign essential hypertension Hypomagnesemia Obstructive sleep apnea of adult Osteoarthritis of knees, bilateral Pulmonary embolism per pt happened during surgery @ [facility] "within the last 10yrs, I dont remember how long ago" Surgical History History of repair of left rotator cuff History of repair of right rotator cuff S/P arteriovenous (AV) fistula creation x2--per pt one on each arm, right arm is FUNCTIONING fistula History of colonoscopy History of tooth extraction History of bilateral cataract extraction History of cardiac cath roughly 5yrs ago @ [facility]--caused an aortic dissection--no stents 05/27/2023 Coronary angiography w/left heart cath (Right) CORONARY ANGIOGRAPHY W/LEFT HEART CATH performed by Janet Larios MD at [facility] Kidney replaced by transplant per pt 2012 @ [facility] History of hernia repair umbilical hernia repair History of tonsillectomy Family History Other No family history of adverse response to anesthesia No pertinent family history Denies family history of Ovarian cancer Prostate cancer Myocardial infarction Breast cancer Colorectal cancer Social History Smoking Status: Unknown if ever smoked Second Hand Exposure: No; Do You Dip or Chew Tobacco: No; Hx Alcohol Use: No Hx Substance Use: No Preferred Language: Uzbek Communication Ability: Effective Visual Impairment: No Limitations Hearing Ability: Normal Legal Support Specialist Required: No Beliefs That Will Affect Care: None marital status: Current Living Situation: Family current occupational status: retired Feels Safe at Home: Yes Safety Concerns: Feels Safe At This Time Childhood Exposure to Second-Hand Smoke: No caffeine: Yes (coffee ) Dental Care, Regularly: Yes Physical Activity Frequency: Does not Exercise Seatbelt Use: sometimes Sunscreen Use: Yes Assistive Devices: CPAP and Glasses Results & Data Vital Signs (Past 12 Hours) Vital Signs Temp Pulse Pulse Resp BP BP Pulse Ox 06/28/23 12:06 15 06/28/23 12:00 152/74 H 06/28/23 12:00 64 17 96 06/28/23 11:50 67 17 96 06/28/23 11:40 64 14 98 06/28/23 11:30 66 18 98 06/28/23 11:30 161/77 H 06/28/23 11:26 71 19 06/28/23 11:02 68 06/28/23 11:02 198/58 H 06/28/23 11:00 68 20 06/28/23 10:50 63 18 06/28/23 10:40 65 15 06/28/23 10:30 67 21 06/28/23 10:20 65 18 06/28/23 10:10 67 21 06/28/23 10:00 67 19 06/28/23 09:50 75 19 06/28/23 09:40 73 22 06/28/23 09:31 132/59 L 06/28/23 09:31 74 16 06/28/23 09:30 75 19 06/28/23 09:28 174/75 H 06/28/23 09:28 77 22 06/28/23 09:20 72 20 06/28/23 09:10 71 22 06/28/23 09:00 213/119 H 06/28/23 09:00 75 24 06/28/23 08:50 78 15 06/28/23 08:40 71 20 06/28/23 08:33 36.8 C 71 18 170/85 H 96 06/28/23 08:30 172/135 H 06/28/23 08:30 71 19 06/28/23 08:27 74 13 06/28/23 08:27 173/96 H 06/28/23 08:20 72 06/28/23 08:10 71 13 06/28/23 08:00 208/81 H 06/28/23 08:00 79 14 06/28/23 07:50 72 06/28/23 07:40 63 15 06/28/23 07:30 197/79 H 06/28/23 07:30 65 06/28/23 07:20 64 06/28/23 07:18 72 06/28/23 07:10 64 19 06/28/23 07:00 175/80 H 06/28/23 07:00 63 06/28/23 06:50 66 12 06/28/23 06:40 66 14 06/28/23 06:30 195/80 H 06/28/23 06:30 66 16 06/28/23 06:20 64 12 06/28/23 05:55 36.8 C 67 12 181/88 H 94 O2 Del Method 06/28/23 12:06 06/28/23 12:00 06/28/23 12:00 06/28/23 11:50 06/28/23 11:40 06/28/23 11:30 06/28/23 11:30 06/28/23 11:26 06/28/23 11:02 06/28/23 11:02 06/28/23 11:00 06/28/23 10:50 06/28/23 10:40 06/28/23 10:30 06/28/23 10:20 06/28/23 10:10 06/28/23 10:00 06/28/23 09:50 06/28/23 09:40 06/28/23 09:31 06/28/23 09:31 06/28/23 09:30 06/28/23 09:28 06/28/23 09:28 06/28/23 09:20 06/28/23 09:10 06/28/23 09:00 06/28/23 09:00 06/28/23 08:50 06/28/23 08:40 06/28/23 08:33 Room Air 06/28/23 08:30 06/28/23 08:30 06/28/23 08:27 06/28/23 08:27 06/28/23 08:20 06/28/23 08:10 06/28/23 08:00 06/28/23 08:00 06/28/23 07:50 06/28/23 07:40 06/28/23 07:30 06/28/23 07:30 06/28/23 07:20 06/28/23 07:18 06/28/23 07:10 06/28/23 07:00 06/28/23 07:00 06/28/23 06:50 06/28/23 06:40 06/28/23 06:30 06/28/23 06:30 06/28/23 06:20 06/28/23 05:55 Room Air Laboratory Results reviewed in detail. Electrolytes are normal Diagnostic Findings CT angio of the chest was reviewed--- no PE noted and no obvious features of volume overload.
[2023-06-28] MEDS: SEVELAMER HCL 800 MG TABLET PO ONE (13:52)
--- NOTE | 2023-06-28 17:07 | Communication Note ---
Date of Service: June 28, 2023 Patient reassessed while undergoing dialysis in the inpatient dialysis unit. He is comfortable, still notes the same left upper quadrant abdominal pain but it is controlled. Hemodynamic stable. CT scan reviewed without any acute intra-abdominal aortic pathology. Findings suggestive of colonic diverticulitis and mild acute sigmoid diverticulitis. Echocardiogram reveals mild diffuse left ventricular hypokinesis, LVEF in the range of 45-50%. Improved compared to prior echo performed at [facility] on 05/27/2023 with LVEF <20% at that time. Case discussed by phone with Dr. Coburn. Patient stable for discharge from a cardiac perspective after dialysis if he continues to feel well. Agree with plans to complete a course of oral Augmentin. Has upcoming GI follow-up. Has upcoming plans to enroll in cardiac rehab in [place]. Katya Huerta DO
--- NOTE | 2023-06-28 19:12 | Discharge Summary ---
Date of Service June 28, 2023 Admission HPI Per Admitting Provider Noel Ruiz is a 77 year old male with a PMH significant for CAD S/P recent NSTEMI and PCI with KASHMIR placement to the RCA, distal LMCA/ostial LAD, at [facility] on 05/27/23, HFrEF (LVEF of <20%), thoracic aortic aneurysm, atrial fibrillation (not on anticoagulation due to bleeding risk), ESRD on HD MWF, GERD, complex sleep apnea syndrome, dyslipidemia who presented to the [facility] ED on 06/27/23 due to acute onset of left sided chest pain with inspiration. He was noted be mildly hypotensive at 106/58, tachycardic at 108, but otherwise stable. Labs were significant for a thrombocytopenia of 114, d- dimer of 2530, Cr. of 5.83, bicarb of 33, initial high sen trop 44 ---> 39 on 2 hour repeat. CTA of the chest with PE protocol was read as "1. No pulmonary emboli identified. 2. 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 No acute dissection within the chest. 3. Trace left pleural effusion. 4. Mild cardiomegaly. Extensive coronary calcification.". The ED staff spoke with [facility] Cardiology who reviewed his ECG's from today and they stated there were no acute concerning changes compared to his post heart cath ECG's. They also reviewed the patient's CTA of the chest today and believed the thoracic aortic aneurysm to be stable. They recommended admission for ongoing monitoring on tele. Prior to admission the patient was given 500 mL NSS. At the time of the exam the patient was lying in bed in no acute distress with his bedside, history was obtained from both. They confirm his recent hospitalization [place] [facility] [place], see discharge summary scanned into [employer] for details. Last night he started to develop dull/achy epigastric/LUQ abdominal pain when he took deep breaths. He mentioned this to his PCP earlier today for discharge follow-up and they sent him to the ED due to concern for possible PE, his hx of aortic aneurysm, and recent cardiac catheterization. He does have a known hiatal hernia and long history of reflux. He was supposed to start taking Pantoprazole 40 mg PO BID after discharge, he states that the prescription bottle said to take once daily so he's only been taking it once a day. Denies recent fever, chills, SOB, cough, hemoptysis, vomiting, diarrhea, melena, LE swelling, and recent trauma. He does not make urine and had a full dialysis session yesterday evening. They confirm that he is a DNR/DNI, his is his POA if he cannot make decisions himself. Principal Diagnosis Epigastric pain, likely musculoskeletal and/or upper GI related Discharge Exam PHYSICAL EXAMINATION Last 24h vital signs reviewed, see documentation in flowsheet General: comfortable appearing, no distress HEENT: Normocephalic, atraumatic, pupils round and equal, sclerae anicteric, no conjunctival injection, moist mucus membranes Lungs: Normal respiratory effort. Clear to auscultation bilaterally. No RRW Heart: Regular rate and rhythm, no murmurs. No JVD Abdomen: Soft, nontender, focal area of pain is not tender, nondistended. Bowel sounds present. Extremities: Warm, dry, well-perfused. No extremity edema. Bilateral UE AV fistulas Neuro: Alert and oriented x 4, face symmetric, moves 4 extremities well Psych: Normal affect and behavior Discharge Data Allergies Allergy/AdvReac Type Severity Reaction Status Date / Time No Known Allergies Allergy Verified 06/27/23 09:06 Consultations 06/27/23 19:56 ED Decision to Admit Stat 06/27/23 20:18 Consult Nephrology Routine 06/27/23 20:48 Consult Cardiology Routine Ordered Studies 06/27/23 17:04 CT angio chest PE protocol Stat 06/28/23 09:36 CTA abd pelvis wo/w con [CT angio abd pelvis wo/w con] Urgent Chest CTA 06/27/23 17:04 CT ANGIOGRAPHY OF THE CHEST, PULMONARY EMBOLUS PROTOCOL CLINICAL HISTORY: Left-sided chest pain. History dissection repair. COMPARISON STUDY: Chest radiograph June 04, 2022. TECHNIQUE: Following IV administration of 119 mL of Optiray, helical axial images of the chest were obtained utilizing the pulmonary embolus protocol. Maximal intensity projections and sagittal and coronal reformats were viewed on an independent 3D workstation. IV contrast was administered without complication. Automated exposure control was utilized for the study. A dose lowering technique was utilized adhering to the principles of ALARA. CT DOSE: 653.28 mGy.cm FINDINGS: No pulmonary emboli are identified. There is moderate cardiomegaly and extensive coronary artery calcification. There is extensive atherosclerotic plaque within the thoracic aorta. Focal outpouchings of the descending thoracic aorta suggests chronic dissection with displaced intimal calcifications. Associated aneurysmal dilatation of the descending thoracic aorta measuring up to 3.7 cm is noted. There is no evidence for rupture. Outpouching of the distal descending thoracic aorta is unchanged since abdominal CT of June 04, 2022. No acute thoracic aortic dissection is identified. There is trace left pleural effusion. No consolidation is identified to suggest pneumonia. There is no pneumothorax. Contrast within collaterals within the chest is incidentally noted. A few hypodense hepatic lesions favor cysts. Innumerable hypodense splenic lesions are similar to abdominal CT of June 04, 2022. IMPRESSION: 1. No pulmonary emboli identified. 2. 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 No acute dissection within the chest. 3. Trace left pleural effusion. 4. Mild cardiomegaly. Extensive coronary calcification. ACT 112: Negative or not required by law. Electronically signed by: Rich Charles M.D. 06/27/2023 6:23 PM Abdomen/Pelvis CTA 06/28/23 09:36 CT angio abd pelvis wo/w con HISTORY: 77 years-old Male left upper quadrant pain acute left upper quadrant abdominal pain in a patient with history of colonic diverticulosis. Dialysis patient. COMPARISON: CTA chest 06/27/2023, CT abdomen and pelvis 06/04/2012 TECHNIQUE: CTA of the abdomen and pelvis was obtained with and without IV contrast. 3-D coronal and sagittal images were obtained and reviewed. All measurements were obtained according to NASCET criteria. A dose lowering technique was used consistent with the principals of MARYCHUY. FINDINGS: CTA: Moderate cardiomegaly. Opacified venous collaterals of the left chest wall and flank. Evaluation of the distal descending thoracic aorta focally on image 36 series 5 measures 3.7 x 3.6 cm. There is a left lateral chronic appearing saccular aneurysm at this level which measures 3.1 x 1.6 x 3.2 cm in AP, transverse and craniocaudal dimensions. There is no abdominal aortic aneurysm or dissection. The celiac trunk, superior and inferior mesenteric arteries are widely patent. No areas of active extravasation. The iliac and imaged femoral arteries are also patent. There is a least moderate stenosis of the renal arteries to the grand traverse kidneys. The feeding artery within the right hemipelvis to the transplanted kidney is patent. CT ABDOMEN AND PELVIS: Trace pleural effusions with mild dependent subsegmental bibasilar atelectasis. There is no free air. Unremarkable spleen, and adrenal glands. Atrophic pancreas with numerous cystic foci suggestive of sidebranch IPMN's measuring up to 8 mm. Partial distention of the gallbladder with wall thickening. Scattered hepatic cysts redemonstrated. Atrophic grand traverse kidneys with innumerable complex and simple cysts. 5 mm calcification of the interpolar left kidney. 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 No hydronephrosis. Trace free pelvic fluid. Colonic diverticulosis. There is wall thickening of the sigmoid with adjacent inflammatory stranding centered around a sigmoid diverticulum on image 255 series 5. No abscess. No CT evidence of acute appendicitis. Unremarkable soft tissues. Degenerative changes of the spine, pelvis and hips. IMPRESSION: 1. Extensive colonic diverticulosis with findings suggestive of mild acute sigmoid diverticulitis. Findings could be correlated with follow-up colonoscopy after treatment course. 2. Trace pelvic ascites. No pneumoperitoneum or abscess. 3. No bowel obstruction. 4. Atherosclerosis with 3.1 x 1.6 x 3.2 cm saccular aneurysm of the distal descending thoracic aorta. 5. Additional findings as above. ACT 112: Negative or not required by law. The above report was generated using voice recognition software. It may contain grammatical, syntax or spelling errors. Electronically signed by: William Cerna M.D. 06/28/2023 12:02 PM 06/28/23 06:32 06/28/23 06:32 Hospital Course (1) Abdominal pain: Noel Ruiz is a 77 year old male with a PMH significant for CAD S/P recent NSTEMI and PCI with KASHMIR placement to the RCA, distal LMCA/ostial LAD, at [facility] on 05/27/23, HFrEF (LVEF of <20%), thoracic aortic aneurysm, atrial fibrillation (not on anticoagulation due to bleeding risk), ESRD on HD MWF, GERD and hiatal hernia, complex sleep apnea syndrome who presented to the [facility] ED on 06/27/23 due to acute onset of left sided chest pain with inspiration / LUQ pain. Underwent CTA of the chest which was negative for PE and showed a stable chronic thoracic aortic dissection/aneurysm I reviewed records from previous hospitalization at [facility]. Per discharge summary from 05/2023 he had epigastric pain at that time as well, outpatient EGD has been scheduled for June with [facility] (he cancelled). He was seen by general surgery and GI for this issue and abdominal CTA was negative for stenoses to cause mesenteric ischemia, HIDA scan was also negative. Had bid PPI and short course of carafate. Was supposed to be on bid PPI but that got mixed up and he was only taking it daily. Also seen by [facility] late Apr being evaluated for interventional procedure to treat his hiatal hernia. Those notes document MRCP study fall 2022 with similar findings to today's CTA including the IPMNs. He also had negative gastric emptying study in the past. CTA of abdomen ordered by cardiology this am reviewed, no change in chronic thoracic dissection. Possible small focal area of mild diverticulitis of sigmoid colon. -On exam, the patient's discomfort is in an extremely focal location upper abdomen epigastric area just left of midline. This area is nontender however. Rest of abdomen also nontender -the focality and aggravation with breathing and moving are suggestive of musculoskeletal pain, abdominal wall pain. No hernia or incisions in this area and no back pain or rash. -some character of the pain is suggestive of upper GI source - GERD, dyspepsia, gastritis or PUD. -Continue BID pantoprazole and famotidine PRN -Put in request to reschedule with [facility] - consider EGD (2) Elevated troponin: Hx multivessel CAD with NSTEMI last month treated at [facility] with PCI - KASHMIR to L main/LAD, angioplasty of circ, KASHMIR to RCA -high sen trop mildly elevated at 44 --> 39 --> 52 --> 51. Much lower than on recent discharge from his NSTEMI -[facility] Cardiology was consulted and confirmed no acute ECG changes compared to recent admission at [facility] -Likely a combination of mild demand from his severely reduced EF and falsely elevated due to his ESRD status -Continue aspirin and plavix, atorvastatin recently increased to 80 -repeat TTE done today - Discussed with Dr. Huerta - EF has improved from 20% at time of NSTEMI to 45-50% -ok for discharge from cardiology standpoint, follow up with [facility] cardiology (3) ESRD needing dialysis: -Typical dialysis schedule is MWF -consulted aquaculture director, dialyzed this afternoon (4) Thrombocytopenia: -Platelets of 114 --> 96. Possibly related to Plavix? monitor for hemolysis or rash. Pancytopenic but WBC and Hct not significantly different from his baseline. -No signs of bleeding, no rash, no fever, not suspicious for TTP -Have to continue DAPT at this time with his recent KASHMIR placement -follow up in cardiology and/or primary care with repeat CBC -instructed to call immediately if he gets significant rash on plavix (5) Paroxysmal atrial fibrillation: -Reportedly developed new onset, paroxysmal afib during his admission at [facility] last month -Per the discharge summary, anticoagulation was not started due to the patient's bleeding risk, on DAPT -Has been in sinus rhythm today -Continue Carvedilol (6) Ischemic cardiomyopathy: -Currently euvolemic -LVEF of < 20% on echo obtained at [facility] during last admission -EF improved to 40-45% on today's Echo (7) Coronary artery disease: -Continue aspirin and plavix (8) GERD (gastroesophageal reflux disease): see above (9) Benign essential hypertension: cont carvedilol/losartan Plan 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 Followed by [facility] vascular surgery. Stable on CTA chest and abdomen today HFrEF - is on b-sowmya and ARB, volume managed by HD Total Time Total Time Spent Total Time Spent (In Minutes): Total Time Spent with Patient: I personally spent: 65 minutes today on clinical care activities including: reviewing chart notes and vital signs reviewing labs reviewing studies reviewing old records discussion with consultant electronics(s) examining and counseling the patient counseling the patient's family writing orders, discharge instructions documentation Discharge Plan Discharge Items Patient Disposition: Home - Self-Care Reason For Visit: CHEST PAIN Discharge Diagnosis: Epigastric pain - possibly musculoskeletal pain or GI related Condition on Discharge: Good Activity: Resume your previous activity Non-emergency contact: Primary Care Provider, Editorial Project Manager and Sheet Metal Operator Call non-emergency contact if: you have any medication questions and your symptoms worsen Follow-up/Referrals: Giuseppe Carbajal MD [Primary Care Provider] - Diet: Dialysis Renal Addtl Attending Provider Instructions: You were evaluated for chest/abdominal pain Fortunately no evidence of heart attack, change in dissection, pulmonary embolism or other serious life threatening causes Your Echo shows significantly improved heart squeeze - EF now 45-50% (previously 20%). This is great news! Please follow up with [facility] cardiology as scheduled I think the pain may be musculoskeletal or related to upper GI pain - hiatal hernia can cause increased GERD symptoms, gastritis/esophagitis or ulcers, or just dyspepsia that can be painful. Increase your protonix to twice a day -please follow up with gastroenterology - we requested [facility] clinic to contact you to reschedule -[facility] is another option since you were seen there recently There was possible mild diverticulitis of your sigmoid colon on CT scan - take antibiotic for one week. Take AFTER dialysis on dialysis days. Follow up with primary care for the stomach pain, diverticulitis, and recheck your platelet count. Your platelet count is moderately low - this could be related to plavix If you develop significant rash while on plavix call your doctor right away Pending Studies at Discharge: No Stand-Alone Forms: [facility], Smoking Cessation Medications and DC Order Prescriptions: New amoxicillin-pot clavulanate 500-125 mg Tablet 1 tab PO DAILY Qty: 7 0RF Rx Instructions: take AFTER dialysis on dialysis days famotidine 20 mg tablet 20 mg PO DAILY PRN (Reason: stomach pain / heartburn) Qty: 1 0RF Rx Instructions: may buy over the counter but only take max ONE tab a day because of kidney failure Continued nitroglycerin 0.4 mg tablet, sublingual 0.4 mg SL Q5M PRN (Reason: chest pain) Qty: 25 2RF Rx Instructions: until response; do not exceed 3 doses per episode calcium acetate 667 mg tablet 667 mg PO BID Qty: 60 0RF atorvastatin 80 mg tablet 80 mg PO QPM Qty: 90 3RF pantoprazole 40 mg tablet,delayed release (DR/EC) 40 mg PO BID Qty: 180 3RF triamcinolone acetonide 0.1 % cream 1 applic topical BID PRN (Reason: widespread itch) Qty: 454 5RF Isis-Jomar 0.8 mg tablet 1 tab PO QPM heparin (porcine) 1,000 unit/mL solution 2,000 unit IV .COMPLEX Rx Instructions: 2,000 units intravenously DIALYSIS; carvedilol 12.5 mg tablet 12.5 mg PO BID Qty: 180 3RF Rx Instructions: Only a.m. on Saturday, Saturday, and Saturday clopidogrel 75 mg tablet 75 mg PO DAILY Qty: 90 3RF losartan 25 mg tablet 12.5 mg PO DAILY Qty: 45 3RF Rx Instructions: hold dose on dialysis days SAT,SAT,SAT cinacalcet 30 mg tablet 30 mg PO QPM aspirin [Adult Low Dose Aspirin] 81 mg tablet,delayed release (DR/EC) 81 mg PO QAM sevelamer HCl 800 mg tablet 800 mg PO UD Rx Instructions: pt takes 1 tablet with breakfast & 2 tablets with lunch and supper Discharge Orders: Discharge Order (Routine); Ordered 06/28/23 Ordered By: Tara Coburn Admission Data Admit Date/Time: 06/27/23 20:17 Attending Provider: Kevin Mcguire Admit Provider: Kevin Mcguire Primary Care Provider: Giuseppe Carbajal Other Providers: Kevin Mcguire; Charline Cohen; Isak Carvalho; Christiano Byrd; Jeferson Luna; Melody Tavera; Alphonso Huerta Other Interventions: Discharge Summary Assessment (RN) Last Done: 06/28/23 19:06 Coding Level of Care Code 38481 INP/OBS DISCH >30 MIN Diagnoses Abdominal pain R10.9 Elevated troponin R79.89 ESRD needing dialysis N18.6; Z99.2 Thrombocytopenia D69.6 Paroxysmal atrial fibrillation I48.0 Ischemic cardiomyopathy I25.5 Coronary artery disease I25.10 GERD (gastroesophageal reflux disease) K21.9 Benign essential hypertension I10
[2023-06-28] MEDS: EPOETIN ALFA 4,000 UNIT/ML VIAL IV ONE (19:50)
[2023-06-28] MEDS: AMOXICILLIN/CLAVULANATE 500 MG TAB PO SCH (20:13)
--- NOTE | 2023-06-29 07:07 | Electrocardiogram Report ---
Test Reason : Blood Pressure : / mmHG Vent. Rate : 071 BPM Atrial Rate : 071 BPM P-R Int : 194 ms QRS Dur : 108 ms QT Int : 408 ms P-R-T Axes : 046 -35 085 degrees QTc Int : 443 ms Sinus rhythm with Fusion complexes Left axis deviation Minimal voltage criteria for LVH, may be normal variant ( [place] product ) Anteroseptal infarct , age undetermined T wave abnormality, consider lateral ischemia Abnormal ECG When compared with ECG of 04-JUN-2022 10:31, HR has decreased Confirmed by Noel Hutchinson ([id number]) on 06/29/2023 7:07:08 AM Referred By: Confirmed By:Noel Hutchinson
--- NOTE | 2023-06-29 07:11 | Electrocardiogram Report ---
Test Reason : Blood Pressure : / mmHG Vent. Rate : 072 BPM Atrial Rate : 072 BPM P-R Int : 200 ms QRS Dur : 110 ms QT Int : 410 ms P-R-T Axes : 050 -39 097 degrees QTc Int : 448 ms Sinus rhythm with Fusion complexes and Premature atrial complexes Left axis deviation Anteroseptal infarct (cited on or before 27-JUN-2023) T wave abnormality, consider lateral ischemia Abnormal ECG When compared with ECG of 27-JUN-2023 15:32, (unconfirmed) Premature atrial complexes are now Present Confirmed by Noel Hutchinson ([id number]) on 06/29/2023 7:10:41 AM Referred By: Giuseppe Carbajal Confirmed By:Noel Hutchinson
--- NOTE | 2023-06-29 07:13 | Electrocardiogram Report ---
Test Reason : Blood Pressure : / mmHG Vent. Rate : 071 BPM Atrial Rate : 071 BPM P-R Int : 204 ms QRS Dur : 110 ms QT Int : 412 ms P-R-T Axes : 057 -38 111 degrees QTc Int : 447 ms Sinus rhythm with Fusion complexes and Premature atrial complexes Left axis deviation Anteroseptal infarct (cited on or before 27-JUN-2023) T wave abnormality, consider lateral ischemia Abnormal ECG When compared with ECG of 27-JUN-2023 16:31, (unconfirmed) No significant change was found Confirmed by Noel Hutchinson ([id number]) on 06/29/2023 7:13:17 AM Referred By: Giuseppe Carbajal Confirmed By:Noel Hutchinson
== END 2023-06-28 20:43 | disposition home or self-care (01) ==
LOC: EDINP 14:31 → ED 14:31 → EDINP 22:19 → 2N 22:19